=== PATIENT | male | born 1955 | race Caucasian/White ===

== ENCOUNTER 2020-07-03 20:34 | Inpatient (IN) ==
[2020-07-03] MEDS ORDERED: SODIUM CHLORIDE 0.9% 1,000 ML IV STA ×3 (20:45→23:50)
[2020-07-03 21:55] LABS: Basophils # 0.1 10*3/uL (0.0-0.2); Basophils % 0.7 % (0.0-0.8); Immature Granulocytes % 0.6 %; Immature Granulocytes Absolute 0.07 #; Lymphocytes # 1.2 10*3/uL (1.4-4.0); Lymphocytes % 9.6 % (21.2-54.2); Mean Corpuscular HGB Conc 32.5 GM/DL (32-36); Mean Corpuscular Volume 94.4 FL (87-102); Mean Platelet Volume 11.3 FL (9.6-12.0); Monocytes % 8.8 % (1.7-12.7); Neutrophils % 80.3 % (38.7-73.9); Platelet Count 233 T/CUMM (130-400); Red Blood Count 6.65 MC/CUMM (3.8-5.5); Red Cell Distribution Width 13.4 % (9.3-17.3); White Blood Count 12.6 T/CUMM (4-12)
[2020-07-03 21:57] LABS: Hematocrit 62.8 VOL% (42.0-52.0)
[2020-07-03 21:59] LABS: Hemoglobin 20.4 GM/DL (14.0-18.0)
[2020-07-03 22:15] LABS: Bacteria,Urine Occasional /HPF (Few); Bilirubin,Urine Negative (Negative); Blood, Urine Negative (Negative); Glucose,Urine (UA) Negative (Negative); Granular Casts,Urine 15 /LPF (0-1); Hyaline Casts,Urine 84 /LPF (0-3); Ketones,Urine Negative (Negative); Mucus,Urine Occasional /LPF (Occasional); Nitrite,Urine Negative (Negative); Protein,Urine Negative; RBC,Urine 1 /HPF (0-4); Squamous Epithelial Cell,Urine Occasional /HPF (0-10); Urine Appearance CLEAR (Clear); Urine Color Amber (Yellow); Urine Specific Gravity 1.036 (1.001-1.035); WBC,Urine 3 /HPF (0-6)
[2020-07-03] MEDS: HEPARIN DRIP 25,000 UNITS/500 ML PREMIX IV SCH (22:17)
[2020-07-03 22:26] LABS: Barbiturates Screen,Urine Negative (Negative); Benzodiazepines Screen,Urine Negative (Negative); Cannabinoid Screen,Urine Negative (Negative); Opiate Screen,Urine Negative (Negative); Phencyclidine Screen,Urine Negative (Negative)
[2020-07-03 22:27] LABS: Alanine Aminotransferase 42 U/L (16-61); Albumin 3.4 G/DL (3.4-5.0); Alkaline Phosphatase 85 U/L (45-117); Aspartate Amino Transferase 37 U/L (0-37); Blood Urea Nitrogen 137 MG/DL (7-18); Calcium 9.4 MG/DL (8.5-10.1); Carbon Dioxide 27 MMOL/L (21-32); Estimated Glom Filtration Rate 19 ML/MIN; Glucose 143 MG/DL (74-106); Osmolality,Calculated 339.3 MOS/KG (273-304); Potassium 4.8 MMOL/L (3.5-5.1); Sodium 148 MMOL/L (136-145); Total Protein 7.8 G/DL (6.4-8.3)
[2020-07-03] MEDS ORDERED: SODIUM CHLORIDE 0.9% 500 ML IV STA (23:09)
[2020-07-04] MEDS ORDERED: LORazepam 2 MG/1 ML VIAL IV STA (00:38)
[2020-07-04] MEDS ORDERED: LABETALOL 20 MG/4 ML SYRINGE IV STA (03:21)
[2020-07-04 04:29] LABS: INR 1.3; PT Patient Result 13.7 SECS (9.8-11.9)
[2020-07-04 04:47] LABS: Partial Thromboplastin Time 85.5 SECS (23.9-33.8)
[2020-07-04 04:54] LABS: INR 1.2
[2020-07-04] MEDS ORDERED: SODIUM CHLORIDE 0.9% 1,000 ML IV STA (06:30)
[2020-07-04 11:21] LABS: Calcium 7.8 MG/DL (8.5-10.1); Osmolality,Calculated 356.7 MOS/KG (273-304); Potassium 4.2 MMOL/L (3.5-5.1)
[2020-07-04] MEDS ORDERED: LIDOCAINE 1% 20 ML VIAL ONE (11:51)
[2020-07-04] MEDS ORDERED: HEPARIN/NACL 0.9% 2 UNITS/ML 1,000 ML IV ONE (11:51)
[2020-07-04] MEDS ORDERED: MORPHINE 4 MG/1 ML VIAL IV PRN (12:28)
[2020-07-04] MEDS ORDERED: hydrALAZINE 20 MG/1 ML VIAL IV PRN (12:28)
[2020-07-04] MEDS ORDERED: ALBUTEROL 2.5 MG/3 ML NEB RESP TX PRN (12:28)
[2020-07-04] MEDS ORDERED: HYDROmorphone 2 MG/1 ML VIAL ONE (12:29)
[2020-07-04] MEDS ORDERED: MIDAZOLAM 2 MG/2 ML VIAL ONE (12:30)
[2020-07-04] MEDS ORDERED: HEPARIN 5,000 UNIT/1 ML VIAL ONE (13:21)
[2020-07-04] MEDS: SODIUM CHLORIDE 0.45% 1,000 ML IV SCH ×2 (13:55→22:30)
[2020-07-04] MEDS ORDERED: DEXTROSE 50% 25 GM/50 ML VIAL IV PRN ×2 (14:07→14:32)
[2020-07-04] MEDS ORDERED: GLUCAGON 1 MG VIAL IM PRN ×2 (14:07→14:32)
[2020-07-04] MEDS ORDERED: INFLUENZA VIRUS VACCINE 0.5 ML SYRINGE IM ONE (14:37)
[2020-07-04] MEDS: PANTOPRAZOLE 40 MG VIAL IV SCH (15:42)
[2020-07-04] MEDS: DEXAMETHASONE 4 MG/1 ML VIAL IV SCH ×2 (15:42→20:22)
[2020-07-04] MEDS: HEPARIN DRIP 25,000 UNITS/500 ML PREMIX IV SCH ×2 (18:28→22:00)
[2020-07-04] MEDS: INSULIN LISPRO 100 UNIT/ML SUBCUT SCH (19:05)
[2020-07-05] MEDS: INSULIN LISPRO 100 UNIT/ML SUBCUT SCH ×4 (01:00→18:03)
[2020-07-05] MEDS: SODIUM CHLORIDE 0.45% 1,000 ML IV SCH ×2 (03:35→09:24)
[2020-07-05] MEDS: DEXAMETHASONE 4 MG/1 ML VIAL IV SCH ×4 (03:45→21:46)
[2020-07-05 05:32] LABS: Basophils % 0.1 % (0.0-0.8); Hematocrit 45.4 VOL% (42.0-52.0); Hemoglobin 14.6 GM/DL (14.0-18.0); Immature Granulocytes % 0.6 %; Immature Granulocytes Absolute 0.11 #; Lymphocytes # 1.1 10*3/uL (1.4-4.0); Lymphocytes % 6.3 % (21.2-54.2); Mean Corpuscular HGB Conc 32.2 GM/DL (32-36); Mean Corpuscular Volume 96.4 FL (87-102); Mean Platelet Volume 12.1 FL (9.6-12.0); Monocytes % 4.1 % (1.7-12.7); Neutrophils % 88.9 % (38.7-73.9); Platelet Count 193 T/CUMM (130-400); Red Blood Count 4.71 MC/CUMM (3.8-5.5); Red Cell Distribution Width 13.2 % (9.3-17.3)
[2020-07-05 07:04] LABS: Calcium 8.6 MG/DL (8.5-10.1); Osmolality,Calculated 359.3 MOS/KG (273-304); Potassium 5.2 MMOL/L (3.5-5.1); Thyroid Stimulating Hormone 0.88 uIU/ml (0.358-3.74)
[2020-07-05] MEDS: APIXABAN 5 MG TABLET PO SCH ×2 (09:19→21:49)
[2020-07-05] MEDS: SODIUM BICARB INJ 50 MEQ in STERILE WATER INJ 1,000 ML IV SCH (11:11)
[2020-07-05] MEDS: PANTOPRAZOLE 40 MG VIAL IV SCH (12:00)
[2020-07-05] MEDS: ATORVASTATIN 40 MG TABLET PO SCH (21:49)
[2020-07-06] MEDS: INSULIN LISPRO 100 UNIT/ML SUBCUT SCH ×4 (01:57→18:36)
[2020-07-06] MEDS: DEXAMETHASONE 4 MG/1 ML VIAL IV SCH ×2 (03:35→09:58)
[2020-07-06] MEDS: SODIUM BICARB INJ 50 MEQ in STERILE WATER INJ 1,000 ML IV SCH ×3 (05:41→19:30)
[2020-07-06 07:00] LABS: Basophils % 0.1 % (0.0-0.8); Hematocrit 37.6 VOL% (42.0-52.0); Immature Granulocytes % 1.8 %; Immature Granulocytes Absolute 0.24 #; Lymphocytes % 7.2 % (21.2-54.2); Mean Corpuscular Volume 93.5 FL (87-102); Monocytes % 4.9 % (1.7-12.7); NRBC # 0.36 10*3/uL; Platelet Count 185 T/CUMM (130-400); Red Blood Count 4.02 MC/CUMM (3.8-5.5); Red Cell Distribution Width 13.2 % (9.3-17.3); White Blood Count 13.6 T/CUMM (4-12)
[2020-07-06 07:06] LABS: Potassium 4.7 MMOL/L (3.5-5.1)
[2020-07-06 07:10] LABS: Hemoglobin 12.4 GM/DL (14.0-18.0)
[2020-07-06] MEDS: APIXABAN 5 MG TABLET PO SCH ×2 (12:53→22:11)
[2020-07-06] MEDS: PANTOPRAZOLE 40 MG VIAL IV SCH (12:54)
[2020-07-06] MEDS: ATORVASTATIN 40 MG TABLET PO SCH (22:12)
[2020-07-07] MEDS: INSULIN LISPRO 100 UNIT/ML SUBCUT SCH ×5 (01:31→19:33)
[2020-07-07 06:11] LABS: Basophils % 0.3 % (0.0-0.8); Eosinophils % 0.2 % (0.00-10.9); Hematocrit 34.1 VOL% (42.0-52.0); Hemoglobin 11.2 GM/DL (14.0-18.0); Immature Granulocytes % 3.3 %; Immature Granulocytes Absolute 0.44 #; Lymphocytes # 1.3 10*3/uL (1.4-4.0); Lymphocytes % 9.7 % (21.2-54.2); Mean Corpuscular HGB Conc 32.8 GM/DL (32-36); Mean Corpuscular Volume 96.6 FL (87-102); Monocytes % 7.7 % (1.7-12.7); NRBC # 0.42 10*3/uL; Neutrophils % 78.8 % (38.7-73.9); Platelet Count 169 T/CUMM (130-400); Red Blood Count 3.53 MC/CUMM (3.8-5.5); Red Cell Distribution Width 13.5 % (9.3-17.3); White Blood Count 13.3 T/CUMM (4-12)
[2020-07-07 06:27] LABS: Calcium 8.8 MG/DL (8.5-10.1); Osmolality,Calculated 347.3 MOS/KG (273-304); Potassium 4.5 MMOL/L (3.5-5.1)
[2020-07-07] MEDS: SODIUM BICARB INJ 50 MEQ in STERILE WATER INJ 1,000 ML IV SCH (07:11)
[2020-07-07] MEDS: APIXABAN 5 MG TABLET PO SCH ×2 (09:53→21:27)
[2020-07-07] MEDS: PANTOPRAZOLE 40 MG VIAL IV SCH (12:09)
[2020-07-07] MEDS: SODIUM CHLORIDE 0.45% 1,000 ML IV SCH (12:46)
[2020-07-07] MEDS: ATORVASTATIN 40 MG TABLET PO SCH (21:27)
[2020-07-08] MEDS: SODIUM CHLORIDE 0.45% 1,000 ML IV SCH ×2 (00:36→14:30)
[2020-07-08 07:31] LABS: Basophils % 0.3 % (0.0-0.8); Eosinophils # 0.1 10*3/uL (0.0-0.87); Eosinophils % 0.6 % (0.00-10.9); Hematocrit 34.1 VOL% (42.0-52.0); Hemoglobin 10.8 GM/DL (14.0-18.0); Immature Granulocytes % 2.6 %; Lymphocytes # 2.2 10*3/uL (1.4-4.0); Lymphocytes % 19.4 % (21.2-54.2); Mean Corpuscular HGB Conc 31.7 GM/DL (32-36); Mean Corpuscular Volume 99.4 FL (87-102); Monocytes % 8.6 % (1.7-12.7); NRBC # 0.27 10*3/uL; Neutrophils % 68.5 % (38.7-73.9); Platelet Count 167 T/CUMM (130-400); Red Blood Count 3.43 MC/CUMM (3.8-5.5); Red Cell Distribution Width 13.2 % (9.3-17.3); White Blood Count 11.5 T/CUMM (4-12)
[2020-07-08 07:48] LABS: Calcium 8.4 MG/DL (8.5-10.1); Calcium 8.5 MG/DL (8.5-10.1); Osmolality,Calculated 324.6 MOS/KG (273-304); Osmolality,Calculated 325.6 MOS/KG (273-304); Potassium 4.5 MMOL/L (3.5-5.1)
[2020-07-08] MEDS: INSULIN LISPRO 100 UNIT/ML SUBCUT SCH ×3 (08:58→17:03)
[2020-07-08] MEDS: APIXABAN 5 MG TABLET PO SCH ×2 (09:40→21:32)
[2020-07-08] MEDS: PANTOPRAZOLE 40 MG VIAL IV SCH (11:45)
[2020-07-08] MEDS: ATORVASTATIN 40 MG TABLET PO SCH (21:32)
[2020-07-09] MEDS: INSULIN LISPRO 100 UNIT/ML SUBCUT SCH ×4 (01:29→19:45)
[2020-07-09] MEDS: SODIUM CHLORIDE 0.45% 1,000 ML IV SCH ×2 (01:30→06:01)
[2020-07-09 06:11] LABS: Basophils % 0.2 % (0.0-0.8); Eosinophils # 0.3 10*3/uL (0.0-0.87); Eosinophils % 2.5 % (0.00-10.9); Hematocrit 32.5 VOL% (42.0-52.0); Hemoglobin 10.4 GM/DL (14.0-18.0); Immature Granulocytes % 2.5 %; Immature Granulocytes Absolute 0.27 #; Lymphocytes # 1.7 10*3/uL (1.4-4.0); Lymphocytes % 15.9 % (21.2-54.2); Mean Corpuscular Volume 97.6 FL (87-102); Mean Platelet Volume 13.1 FL (9.6-12.0); Monocytes % 8.3 % (1.7-12.7); NRBC # 0.08 10*3/uL; Neutrophils % 70.6 % (38.7-73.9); Platelet Count 148 T/CUMM (130-400); Red Blood Count 3.33 MC/CUMM (3.8-5.5); Red Cell Distribution Width 13.3 % (9.3-17.3)
[2020-07-09 06:37] LABS: Calcium 8.5 MG/DL (8.5-10.1); Osmolality,Calculated 306.4 MOS/KG (273-304); Potassium 4.4 MMOL/L (3.5-5.1)
[2020-07-09 06:50] LABS: Hypochromasia 1+
[2020-07-09 06:51] LABS: Macrocytosis Slight; Platelet Estimate Adequate; Polychromasia Slight
[2020-07-09] MEDS: APIXABAN 5 MG TABLET PO SCH ×2 (09:27→20:42)
[2020-07-09] MEDS: ATORVASTATIN 40 MG TABLET PO SCH (20:42)
[2020-07-10] MEDS: INSULIN LISPRO 100 UNIT/ML SUBCUT SCH ×4 (00:13→18:41)
[2020-07-10] MEDS: SODIUM CHLORIDE 0.45% 1,000 ML IV SCH (02:10)
[2020-07-10 05:51] LABS: Calcium 7.9 MG/DL (8.5-10.1); Osmolality,Calculated 297.8 MOS/KG (273-304); Potassium 4.3 MMOL/L (3.5-5.1)
[2020-07-10] MEDS: APIXABAN 5 MG TABLET PO SCH (08:42)
[2020-07-10] MEDS ORDERED: SKIN HEALING OINT (AQUAPHOR) 50 GM TUBE TOP PRN (14:39)
[2020-07-10 19:22] LABS: PT Patient Result 10.6 SECS (9.8-11.9); Partial Thromboplastin Time 27.3 SECS (23.9-33.8)
[2020-07-10] MEDS: HEPARIN DRIP 25,000 UNITS/500 ML PREMIX IV SCH (20:54)
[2020-07-10] MEDS: ATORVASTATIN 40 MG TABLET PO SCH (21:01)
[2020-07-11] MEDS: INSULIN LISPRO 100 UNIT/ML SUBCUT SCH ×4 (00:53→17:50)
[2020-07-11 07:15] LABS: Osmolality,Calculated 293.1 MOS/KG (273-304); Potassium 4.2 MMOL/L (3.5-5.1)
[2020-07-11] MEDS: HEPARIN DRIP 25,000 UNITS/500 ML PREMIX IV SCH (16:34)
[2020-07-11] MEDS: ATORVASTATIN 40 MG TABLET PO SCH (22:10)
[2020-07-12] MEDS: INSULIN LISPRO 100 UNIT/ML SUBCUT SCH ×5 (00:40→23:36)
[2020-07-12 06:06] LABS: Calcium 8.3 MG/DL (8.5-10.1); Osmolality,Calculated 294.3 MOS/KG (273-304); Potassium 4.2 MMOL/L (3.5-5.1)
[2020-07-12 08:52] LABS: Basophils % 0.1 % (0.0-0.8); Eosinophils # 0.5 10*3/uL (0.0-0.87); Eosinophils % 2.7 % (0.00-10.9); Hematocrit 24.3 VOL% (42.0-52.0); Immature Granulocytes % 3.3 %; Lymphocytes % 16.5 % (21.2-54.2); Mean Corpuscular HGB Conc 31.3 GM/DL (32-36); Mean Corpuscular Volume 98.4 FL (87-102); Mean Platelet Volume 14.5 FL (9.6-12.0); Monocytes % 8.8 % (1.7-12.7); NRBC # 0.06 10*3/uL; Neutrophils % 68.6 % (38.7-73.9); Red Cell Distribution Width 13.7 % (9.3-17.3)
[2020-07-12 08:54] LABS: Red Blood Count 2.47 MC/CUMM (3.8-5.5)
[2020-07-12 08:55] LABS: Hemoglobin 7.6 GM/DL (14.0-18.0); Platelet Count 270 T/CUMM (130-400)
[2020-07-12 09:12] LABS: Band Neutrophils 1 % (0-10); Eosinophils 3 % (0-10); Lymphocytes 21 % (20-55); Nucleated Red Blood Cells 1 (0-5); Platelet Estimate Adequate; Segmented Neutrophils 64 % (50-85); Total Cells Counted 100
[2020-07-12 09:13] LABS: Hypochromasia 2+; Microcytosis 1+
[2020-07-12] MEDS ORDERED: SODIUM CHLORIDE 0.9% 1,000 ML IV PRN (10:57)
[2020-07-12 11:24] LABS: Basophils % 0.1 % (0.0-0.8); Eosinophils # 0.4 10*3/uL (0.0-0.87); Eosinophils % 2.6 % (0.00-10.9); Hematocrit 22.6 VOL% (42.0-52.0); Immature Granulocytes % 4.2 %; Immature Granulocytes Absolute 0.71 #; Lymphocytes # 2.8 10*3/uL (1.4-4.0); Lymphocytes % 16.6 % (21.2-54.2); Mean Corpuscular Volume 98.3 FL (87-102); Mean Platelet Volume 13.2 FL (9.6-12.0); Monocytes % 9.4 % (1.7-12.7); NRBC # 0.09 10*3/uL; Neutrophils % 67.1 % (38.7-73.9); Platelet Count 265 T/CUMM (130-400); White Blood Count 16.9 T/CUMM (4-12)
[2020-07-12 11:55] LABS: Band Neutrophils 1 % (0-10); Eosinophils 3 % (0-10); Hypochromasia 1+; Lymphocytes 19 % (20-55); Microcytosis 1+; Nucleated Red Blood Cells 1 (0-5); Segmented Neutrophils 73 % (50-85); Total Cells Counted 100
[2020-07-12 15:53] LABS: Hematocrit 21.7 VOL% (42.0-52.0); Hemoglobin 6.9 GM/DL (14.0-18.0)
[2020-07-12] MEDS: ATORVASTATIN 40 MG TABLET PO SCH (21:02)
[2020-07-13 04:31] LABS: Basophils % 0.2 % (0.0-0.8); Eosinophils # 0.3 10*3/uL (0.0-0.87); Hematocrit 24.3 VOL% (42.0-52.0); Immature Granulocytes % 4.8 %; Lymphocytes # 2.3 10*3/uL (1.4-4.0); Lymphocytes % 13.7 % (21.2-54.2); Mean Corpuscular HGB Conc 32.9 GM/DL (32-36); Mean Corpuscular Volume 93.5 FL (87-102); Mean Platelet Volume 13.4 FL (9.6-12.0); Monocytes % 8.9 % (1.7-12.7); NRBC # 0.25 10*3/uL; Neutrophils % 70.4 % (38.7-73.9); Platelet Count 290 T/CUMM (130-400); Red Cell Distribution Width 15.5 % (9.3-17.3); White Blood Count 16.7 T/CUMM (4-12)
[2020-07-13 04:54] LABS: Albumin 1.8 G/DL (3.4-5.0); Bilirubin,Total 0.9 MG/DL (0.2-1.0); Calcium 7.9 MG/DL (8.5-10.1); Osmolality,Calculated 296.8 MOS/KG (273-304); Potassium 4.4 MMOL/L (3.5-5.1); Total Protein 5.2 G/DL (6.4-8.3)
[2020-07-13 05:00] LABS: INR 0.9; PT Patient Result 10.2 SECS (9.8-11.9)
[2020-07-13 05:01] LABS: Eosinophils 3 % (0-10); Hypochromasia 1+; Lymphocytes 17 % (20-55); Microcytosis 1+; Segmented Neutrophils 77 % (50-85); Total Cells Counted 100
[2020-07-13 05:03] LABS: Platelet Estimate Normal
[2020-07-13] MEDS: INSULIN LISPRO 100 UNIT/ML SUBCUT SCH ×3 (05:44→17:17)
[2020-07-13 07:56] LABS: Hematocrit 25.4 VOL% (42.0-52.0); Hemoglobin 7.9 GM/DL (14.0-18.0)
[2020-07-13] MEDS ORDERED: ceFAZolin 1,000 MG in SYRINGE 1 EACH IV ONE (08:00)
[2020-07-13] MEDS ORDERED: LIDOCAINE 2% 5 ML VIAL ONE (14:11)
[2020-07-13] MEDS ORDERED: propofoL 200 MG/20 ML VIAL IV ONE (14:11)
[2020-07-13] MEDS: WARFARIN 5 MG TABLET PO SCH (16:07)
[2020-07-13] MEDS: LACTATED RINGERS 1,000 ML IV SCH (16:52)
[2020-07-13] MEDS: ATORVASTATIN 40 MG TABLET PO SCH (20:49)
[2020-07-14] MEDS: INSULIN LISPRO 100 UNIT/ML SUBCUT SCH ×4 (00:15→17:50)
[2020-07-14 05:37] LABS: Basophils % 0.1 % (0.0-0.8); Eosinophils # 0.1 10*3/uL (0.0-0.87); Eosinophils % 0.5 % (0.00-10.9); Hematocrit 24.7 VOL% (42.0-52.0); Hemoglobin 7.9 GM/DL (14.0-18.0); Immature Granulocytes % 1.4 %; Immature Granulocytes Absolute 0.25 #; Lymphocytes # 1.9 10*3/uL (1.4-4.0); Lymphocytes % 10.7 % (21.2-54.2); Mean Corpuscular Volume 97.6 FL (87-102); Mean Platelet Volume 13.2 FL (9.6-12.0); Monocytes % 5.1 % (1.7-12.7); NRBC # 0.14 10*3/uL; Neutrophils % 82.2 % (38.7-73.9); Red Blood Count 2.53 MC/CUMM (3.8-5.5); Red Cell Distribution Width 16.4 % (9.3-17.3); White Blood Count 17.6 T/CUMM (4-12)
[2020-07-14 05:43] LABS: INR 1.1; PT Patient Result 11.4 SECS (9.8-11.9); Platelet Count 384 T/CUMM (130-400)
[2020-07-14 06:13] LABS: Platelet Estimate Normal
[2020-07-14 06:15] LABS: Anisocytosis 2+; Polychromasia Slight
[2020-07-14] MEDS: WARFARIN 5 MG TABLET PO SCH (09:07)
[2020-07-14] MEDS: LACTATED RINGERS 1,000 ML IV SCH (09:24)
[2020-07-14] MEDS: PIPERACILLIN/TAZOBACTAM 3,375 MG in SODIUM CHLORIDE 0.9% 100 ML IV SCH ×2 (13:55→20:06)
[2020-07-14] MEDS: APIXABAN 5 MG TABLET PO SCH ×2 (15:57→20:06)
[2020-07-14] MEDS: ATORVASTATIN 40 MG TABLET PO SCH (20:06)
[2020-07-15] MEDS: INSULIN LISPRO 100 UNIT/ML SUBCUT SCH ×4 (00:06→18:19)
[2020-07-15] MEDS: PIPERACILLIN/TAZOBACTAM 3,375 MG in SODIUM CHLORIDE 0.9% 100 ML IV SCH ×3 (04:30→20:38)
[2020-07-15 07:42] LABS: Basophils % 0.2 % (0.0-0.8); Eosinophils # 0.3 10*3/uL (0.0-0.87); Eosinophils % 2.3 % (0.00-10.9); Hematocrit 23.5 VOL% (42.0-52.0); Hemoglobin 7.6 GM/DL (14.0-18.0); Immature Granulocytes Absolute 0.12 #; Lymphocytes # 1.5 10*3/uL (1.4-4.0); Lymphocytes % 13.1 % (21.2-54.2); Mean Corpuscular HGB Conc 32.3 GM/DL (32-36); Mean Corpuscular Volume 97.1 FL (87-102); Mean Platelet Volume 12.1 FL (9.6-12.0); Monocytes % 5.7 % (1.7-12.7); NRBC # 0.06 10*3/uL; Neutrophils % 77.7 % (38.7-73.9); Platelet Count 382 T/CUMM (130-400); Red Blood Count 2.42 MC/CUMM (3.8-5.5); Red Cell Distribution Width 16.4 % (9.3-17.3); White Blood Count 11.7 T/CUMM (4-12)
[2020-07-15 07:50] LABS: INR 1.9; PT Patient Result 19.4 SECS (9.8-11.9)
[2020-07-15 08:04] LABS: Calcium 8.3 MG/DL (8.5-10.1); Osmolality,Calculated 301.6 MOS/KG (273-304); Potassium 3.7 MMOL/L (3.5-5.1)
[2020-07-15] MEDS: APIXABAN 5 MG TABLET PO SCH ×2 (09:30→20:39)
[2020-07-15] MEDS: LACTATED RINGERS 1,000 ML IV SCH (09:34)
[2020-07-15] MEDS ORDERED: SODIUM CHLORIDE 0.9% 1,000 ML IV PRN (10:41)
[2020-07-15] MEDS: METOPROLOL TARTRATE 25 MG TABLET PO SCH ×2 (12:08→20:39)
[2020-07-15] MEDS: ATORVASTATIN 40 MG TABLET PO SCH (20:39)
[2020-07-16] MEDS: INSULIN LISPRO 100 UNIT/ML SUBCUT SCH ×4 (02:05→18:07)
[2020-07-16] MEDS: PIPERACILLIN/TAZOBACTAM 3,375 MG in SODIUM CHLORIDE 0.9% 100 ML IV SCH ×3 (04:37→21:27)
[2020-07-16 07:00] LABS: Basophils % 0.4 % (0.0-0.8); Eosinophils # 0.3 10*3/uL (0.0-0.87); Eosinophils % 2.9 % (0.00-10.9); Hematocrit 29.4 VOL% (42.0-52.0); Hemoglobin 9.3 GM/DL (14.0-18.0); Immature Granulocytes % 0.7 %; Immature Granulocytes Absolute 0.08 #; Lymphocytes # 1.9 10*3/uL (1.4-4.0); Lymphocytes % 16.8 % (21.2-54.2); Mean Corpuscular HGB Conc 31.6 GM/DL (32-36); Mean Platelet Volume 11.7 FL (9.6-12.0); Monocytes % 5.9 % (1.7-12.7); NRBC # 0.02 10*3/uL; Neutrophils % 73.3 % (38.7-73.9); Platelet Count 430 T/CUMM (130-400); Red Blood Count 2.94 MC/CUMM (3.8-5.5); Red Cell Distribution Width 15.9 % (9.3-17.3); White Blood Count 11.3 T/CUMM (4-12)
[2020-07-16 07:54] LABS: Calcium 8.3 MG/DL (8.5-10.1); Osmolality,Calculated 304.1 MOS/KG (273-304); Potassium 3.6 MMOL/L (3.5-5.1)
[2020-07-16] MEDS: APIXABAN 5 MG TABLET PO SCH ×2 (09:02→21:27)
[2020-07-16] MEDS: METOPROLOL TARTRATE 25 MG TABLET PO SCH ×2 (09:02→21:27)
[2020-07-16] MEDS: ATORVASTATIN 40 MG TABLET PO SCH (21:27)
[2020-07-17] MEDS: INSULIN LISPRO 100 UNIT/ML SUBCUT SCH ×4 (05:26→17:05)
[2020-07-17] MEDS: PIPERACILLIN/TAZOBACTAM 3,375 MG in SODIUM CHLORIDE 0.9% 100 ML IV SCH ×3 (06:17→22:37)
[2020-07-17 07:43] LABS: Basophils # 0.1 10*3/uL (0.0-0.2); Basophils % 0.4 % (0.0-0.8); Eosinophils # 0.4 10*3/uL (0.0-0.87); Eosinophils % 3.4 % (0.00-10.9); Hematocrit 31.3 VOL% (42.0-52.0); Hemoglobin 9.6 GM/DL (14.0-18.0); Immature Granulocytes % 0.6 %; Immature Granulocytes Absolute 0.07 #; Mean Corpuscular HGB Conc 30.7 GM/DL (32-36); Mean Corpuscular Volume 100.3 FL (87-102); Mean Platelet Volume 12.1 FL (9.6-12.0); Monocytes % 4.6 % (1.7-12.7); Platelet Count 462 T/CUMM (130-400); Red Blood Count 3.12 MC/CUMM (3.8-5.5); Red Cell Distribution Width 15.9 % (9.3-17.3); White Blood Count 12.4 T/CUMM (4-12)
[2020-07-17 08:28] LABS: Calcium 8.4 MG/DL (8.5-10.1); Osmolality,Calculated 301.1 MOS/KG (273-304); Potassium 3.8 MMOL/L (3.5-5.1)
[2020-07-17] MEDS: METOPROLOL TARTRATE 25 MG TABLET PO SCH ×2 (10:12→22:37)
[2020-07-17] MEDS: APIXABAN 5 MG TABLET PO SCH ×2 (10:12→22:37)
[2020-07-17] MEDS: ATORVASTATIN 40 MG TABLET PO SCH (22:37)
[2020-07-18] MEDS: INSULIN LISPRO 100 UNIT/ML SUBCUT SCH ×4 (05:38→18:52)
[2020-07-18 05:47] LABS: Basophils # 0.1 10*3/uL (0.0-0.2); Basophils % 0.6 % (0.0-0.8); Eosinophils # 0.4 10*3/uL (0.0-0.87); Eosinophils % 3.9 % (0.00-10.9); Hematocrit 30.7 VOL% (42.0-52.0); Hemoglobin 9.7 GM/DL (14.0-18.0); Immature Granulocytes % 0.5 %; Immature Granulocytes Absolute 0.05 #; Lymphocytes # 1.9 10*3/uL (1.4-4.0); Lymphocytes % 18.2 % (21.2-54.2); Mean Corpuscular HGB Conc 31.6 GM/DL (32-36); Mean Platelet Volume 11.1 FL (9.6-12.0); Monocytes % 4.2 % (1.7-12.7); Neutrophils % 72.6 % (38.7-73.9); Platelet Count 459 T/CUMM (130-400); Red Cell Distribution Width 15.9 % (9.3-17.3); White Blood Count 10.4 T/CUMM (4-12)
[2020-07-18] MEDS: PIPERACILLIN/TAZOBACTAM 3,375 MG in SODIUM CHLORIDE 0.9% 100 ML IV SCH ×3 (05:55→21:02)
[2020-07-18 06:11] LABS: Calcium 8.4 MG/DL (8.5-10.1); Osmolality,Calculated 296.6 MOS/KG (273-304); Potassium 3.9 MMOL/L (3.5-5.1)
[2020-07-18] MEDS: METOPROLOL TARTRATE 25 MG TABLET PO SCH ×2 (10:11→21:02)
[2020-07-18] MEDS: APIXABAN 5 MG TABLET PO SCH ×2 (10:12→21:02)
[2020-07-18] MEDS: ATORVASTATIN 40 MG TABLET PO SCH (21:02)
[2020-07-19] MEDS: INSULIN LISPRO 100 UNIT/ML SUBCUT SCH ×5 (00:07→23:15)
[2020-07-19] MEDS: PIPERACILLIN/TAZOBACTAM 3,375 MG in SODIUM CHLORIDE 0.9% 100 ML IV SCH ×2 (04:14→12:53)
[2020-07-19 04:59] LABS: Basophils # 0.1 10*3/uL (0.0-0.2); Basophils % 0.6 % (0.0-0.8); Eosinophils # 0.3 10*3/uL (0.0-0.87); Eosinophils % 3.1 % (0.00-10.9); Hematocrit 30.9 VOL% (42.0-52.0); Hemoglobin 9.6 GM/DL (14.0-18.0); Immature Granulocytes % 0.4 %; Immature Granulocytes Absolute 0.04 #; Lymphocytes % 19.8 % (21.2-54.2); Mean Corpuscular HGB Conc 31.1 GM/DL (32-36); Mean Corpuscular Volume 99.7 FL (87-102); Monocytes % 4.2 % (1.7-12.7); Neutrophils % 71.9 % (38.7-73.9); Platelet Count 463 T/CUMM (130-400); Red Cell Distribution Width 15.9 % (9.3-17.3); White Blood Count 9.9 T/CUMM (4-12)
[2020-07-19 05:33] LABS: Bilirubin,Total 1.1 MG/DL (0.2-1.0); Osmolality,Calculated 295.4 MOS/KG (273-304); Potassium 4.5 MMOL/L (3.5-5.1); Risk Ratio 4.81; Total Protein 6.1 G/DL (6.4-8.9)
[2020-07-19] MEDS: METOPROLOL TARTRATE 25 MG TABLET PO SCH ×2 (08:34→20:19)
[2020-07-19] MEDS: APIXABAN 5 MG TABLET PO SCH (08:34)
[2020-07-19 16:16] LABS: Hematocrit 25.7 VOL% (42.0-52.0); Hemoglobin 7.8 GM/DL (14.0-18.0)
[2020-07-19] MEDS ORDERED: SODIUM CHLORIDE 0.9% 1,000 ML IV ONE (16:45)
[2020-07-19 18:18] LABS: Hematocrit 24.4 VOL% (42.0-52.0); Hemoglobin 7.2 GM/DL (14.0-18.0)
[2020-07-19] MEDS ORDERED: SODIUM CHLORIDE 0.9% 1,000 ML IV PRN ×2 (18:23→19:31)
[2020-07-19 20:08] LABS: Basophils # 0.1 10*3/uL (0.0-0.2); Basophils % 0.7 % (0.0-0.8); Eosinophils # 0.1 10*3/uL (0.0-0.87); Hemoglobin 7.5 GM/DL (14.0-18.0); Immature Granulocytes % 0.6 %; Immature Granulocytes Absolute 0.08 #; Lymphocytes # 2.9 10*3/uL (1.4-4.0); Lymphocytes % 23.1 % (21.2-54.2); Mean Corpuscular Volume 103.7 FL (87-102); Mean Platelet Volume 11.6 FL (9.6-12.0); Monocytes % 6.2 % (1.7-12.7); NRBC # 0.02 10*3/uL; Neutrophils % 68.4 % (38.7-73.9); Platelet Count 435 T/CUMM (130-400); Red Blood Count 2.41 MC/CUMM (3.8-5.5); White Blood Count 12.6 T/CUMM (4-12)
[2020-07-19] MEDS: ONDANSETRON 4 MG/2 ML VIAL IV PRN (20:19)
[2020-07-19] MEDS: ACETAMINOPHEN 325 MG/10.15 ML UDCUP PO PRN (20:19)
[2020-07-19] MEDS: ATORVASTATIN 40 MG TABLET PO SCH (20:19)
[2020-07-19 22:30] LABS: Hematocrit 23.6 VOL% (42.0-52.0); Hemoglobin 6.9 GM/DL (14.0-18.0)
[2020-07-20] MEDS: INSULIN LISPRO 100 UNIT/ML SUBCUT SCH ×3 (05:01→18:31)
[2020-07-20 07:46] LABS: Basophils # 0.1 10*3/uL (0.0-0.2); Basophils % 0.7 % (0.0-0.8); Eosinophils # 0.2 10*3/uL (0.0-0.87); Eosinophils % 1.4 % (0.00-10.9); Hematocrit 29.7 VOL% (42.0-52.0); Hemoglobin 9.5 GM/DL (14.0-18.0); Immature Granulocytes % 0.8 %; Immature Granulocytes Absolute 0.11 #; Lymphocytes # 2.3 10*3/uL (1.4-4.0); Lymphocytes % 16.4 % (21.2-54.2); Mean Corpuscular Volume 95.5 FL (87-102); Mean Platelet Volume 11.5 FL (9.6-12.0); Monocytes % 5.3 % (1.7-12.7); NRBC # 0.04 10*3/uL; Neutrophils % 75.4 % (38.7-73.9); Platelet Count 389 T/CUMM (130-400); Red Blood Count 3.11 MC/CUMM (3.8-5.5); Red Cell Distribution Width 17.7 % (9.3-17.3); White Blood Count 13.8 T/CUMM (4-12)
[2020-07-20 08:05] LABS: Calcium 8.2 MG/DL (8.5-10.1); Osmolality,Calculated 311.1 MOS/KG (273-304); Potassium 4.2 MMOL/L (3.5-5.1)
[2020-07-20 10:17] LABS: Hematocrit 30.3 VOL% (42.0-52.0); Hemoglobin 9.6 GM/DL (14.0-18.0)
[2020-07-20] MEDS: METOPROLOL TARTRATE 25 MG TABLET PO SCH ×2 (14:14→21:27)
[2020-07-20 16:50] LABS: Hematocrit 29.9 VOL% (42.0-52.0); Hemoglobin 9.3 GM/DL (14.0-18.0)
[2020-07-20] MEDS: ATORVASTATIN 40 MG TABLET PO SCH (21:27)
[2020-07-20 22:44] LABS: Hematocrit 28.8 VOL% (42.0-52.0); Hemoglobin 8.8 GM/DL (14.0-18.0)
[2020-07-21] MEDS: INSULIN LISPRO 100 UNIT/ML SUBCUT SCH ×4 (00:45→17:40)
[2020-07-21 05:58] LABS: Hematocrit 27.8 VOL% (42.0-52.0); Hemoglobin 8.6 GM/DL (14.0-18.0)
[2020-07-21 06:01] LABS: Basophils # 0.1 10*3/uL (0.0-0.2); Basophils % 0.4 % (0.0-0.8); Eosinophils # 0.2 10*3/uL (0.0-0.87); Eosinophils % 1.3 % (0.00-10.9); Hematocrit 27.6 VOL% (42.0-52.0); Hemoglobin 8.8 GM/DL (14.0-18.0); Immature Granulocytes % 0.7 %; Lymphocytes # 1.7 10*3/uL (1.4-4.0); Lymphocytes % 12.4 % (21.2-54.2); Mean Corpuscular HGB Conc 31.9 GM/DL (32-36); Mean Corpuscular Volume 96.5 FL (87-102); Mean Platelet Volume 11.6 FL (9.6-12.0); Monocytes % 5.1 % (1.7-12.7); NRBC # 0.14 10*3/uL; Neutrophils % 80.1 % (38.7-73.9); Platelet Count 383 T/CUMM (130-400); Red Blood Count 2.86 MC/CUMM (3.8-5.5); Red Cell Distribution Width 18.4 % (9.3-17.3); White Blood Count 13.8 T/CUMM (4-12)
[2020-07-21 06:21] LABS: Calcium 8.3 MG/DL (8.5-10.1); Osmolality,Calculated 312.1 MOS/KG (273-304); Potassium 3.5 MMOL/L (3.5-5.1)
[2020-07-21] MEDS: METOPROLOL TARTRATE 25 MG TABLET PO SCH ×2 (09:53→21:17)
[2020-07-21] MEDS: METOCLOPRAMIDE 10 MG/2 ML VIAL IV SCH ×2 (12:02→17:40)
[2020-07-21] MEDS: ATORVASTATIN 40 MG TABLET PO SCH (21:17)
[2020-07-22] MEDS: INSULIN LISPRO 100 UNIT/ML SUBCUT SCH ×4 (00:13→17:15)
[2020-07-22] MEDS: METOCLOPRAMIDE 10 MG/2 ML VIAL IV SCH ×4 (00:59→17:15)
[2020-07-22] MEDS: METOPROLOL TARTRATE 25 MG TABLET PO SCH ×2 (09:19→21:29)
[2020-07-22] MEDS: ALBUTEROL/IPRATROPIUM 3 ML NEB RESP TX SCH (19:25)
[2020-07-22] MEDS: ATORVASTATIN 40 MG TABLET PO SCH (21:29)
[2020-07-23] MEDS: METOCLOPRAMIDE 10 MG/2 ML VIAL IV SCH ×4 (00:20→21:44)
[2020-07-23] MEDS: INSULIN LISPRO 100 UNIT/ML SUBCUT SCH ×4 (01:11→17:52)
[2020-07-23] MEDS: ALBUTEROL/IPRATROPIUM 3 ML NEB RESP TX SCH ×4 (01:45→19:28)
[2020-07-23 06:06] LABS: Basophils % 0.5 % (0.0-0.8); Eosinophils # 0.4 10*3/uL (0.0-0.87); Eosinophils % 4.1 % (0.00-10.9); Hematocrit 27.6 VOL% (42.0-52.0); Hemoglobin 8.4 GM/DL (14.0-18.0); Immature Granulocytes % 0.6 %; Immature Granulocytes Absolute 0.05 #; Lymphocytes # 2.1 10*3/uL (1.4-4.0); Mean Corpuscular HGB Conc 30.4 GM/DL (32-36); Mean Corpuscular Volume 102.2 FL (87-102); Mean Platelet Volume 11.5 FL (9.6-12.0); NRBC # 0.03 10*3/uL; Neutrophils % 61.8 % (38.7-73.9); Platelet Count 333 T/CUMM (130-400); Red Cell Distribution Width 18.8 % (9.3-17.3); White Blood Count 8.5 T/CUMM (4-12)
[2020-07-23 06:22] LABS: Calcium 8.1 MG/DL (8.5-10.1)
[2020-07-23] MEDS: METOPROLOL TARTRATE 25 MG TABLET PO SCH ×2 (08:40→21:44)
[2020-07-23] MEDS: ACETAMINOPHEN 325 MG/10.15 ML UDCUP PO PRN (21:43)
[2020-07-23] MEDS: ATORVASTATIN 40 MG TABLET PO SCH (21:44)
[2020-07-24] MEDS: INSULIN LISPRO 100 UNIT/ML SUBCUT SCH ×4 (00:09→19:43)
[2020-07-24] MEDS: ALBUTEROL/IPRATROPIUM 3 ML NEB RESP TX SCH ×4 (00:33→21:06)
[2020-07-24] MEDS: METOCLOPRAMIDE 10 MG/2 ML VIAL IV SCH ×4 (04:30→21:23)
[2020-07-24 06:16] LABS: Basophils % 0.1 % (0.0-0.8); Eosinophils # 0.4 10*3/uL (0.0-0.87); Eosinophils % 4.9 % (0.00-10.9); Hematocrit 27.8 VOL% (42.0-52.0); Hemoglobin 8.2 GM/DL (14.0-18.0); Immature Granulocytes % 0.7 %; Immature Granulocytes Absolute 0.05 #; Lymphocytes # 1.7 10*3/uL (1.4-4.0); Lymphocytes % 22.4 % (21.2-54.2); Mean Corpuscular HGB Conc 29.5 GM/DL (32-36); Mean Platelet Volume 11.2 FL (9.6-12.0); NRBC # 0.02 10*3/uL; Neutrophils % 62.9 % (38.7-73.9); Platelet Count 369 T/CUMM (130-400); White Blood Count 7.4 T/CUMM (4-12)
[2020-07-24 06:37] LABS: Calcium 8.5 MG/DL (8.5-10.1); Osmolality,Calculated 291.8 MOS/KG (273-304); Potassium 3.9 MMOL/L (3.5-5.1)
[2020-07-24] MEDS: METOPROLOL TARTRATE 25 MG TABLET PO SCH ×2 (09:01→21:23)
[2020-07-24] MEDS: ATORVASTATIN 40 MG TABLET PO SCH (21:24)
[2020-07-25] MEDS: INSULIN LISPRO 100 UNIT/ML SUBCUT SCH ×4 (00:07→17:58)
[2020-07-25] MEDS: ALBUTEROL/IPRATROPIUM 3 ML NEB RESP TX SCH ×4 (01:26→19:59)
[2020-07-25] MEDS: METOCLOPRAMIDE 10 MG/2 ML VIAL IV SCH ×4 (03:51→22:27)
[2020-07-25 04:57] LABS: Basophils % 0.3 % (0.0-0.8); Eosinophils # 0.4 10*3/uL (0.0-0.87); Eosinophils % 4.5 % (0.00-10.9); Hematocrit 28.8 VOL% (42.0-52.0); Hemoglobin 8.6 GM/DL (14.0-18.0); Immature Granulocytes % 0.6 %; Immature Granulocytes Absolute 0.05 #; Lymphocytes # 1.9 10*3/uL (1.4-4.0); Lymphocytes % 21.8 % (21.2-54.2); Mean Corpuscular HGB Conc 29.9 GM/DL (32-36); Mean Corpuscular Volume 100.3 FL (87-102); Mean Platelet Volume 11.5 FL (9.6-12.0); Monocytes % 9.6 % (1.7-12.7); Neutrophils % 63.2 % (38.7-73.9); Platelet Count 358 T/CUMM (130-400); Red Blood Count 2.87 MC/CUMM (3.8-5.5); Red Cell Distribution Width 17.7 % (9.3-17.3); White Blood Count 8.6 T/CUMM (4-12)
[2020-07-25 05:16] LABS: Calcium 8.4 MG/DL (8.5-10.1); Osmolality,Calculated 279.4 MOS/KG (273-304); Potassium 3.9 MMOL/L (3.5-5.1)
[2020-07-25 07:24] LABS: PT Patient Result 10.7 SECS (9.8-11.9)
[2020-07-25] MEDS: METOPROLOL TARTRATE 25 MG TABLET PO SCH ×2 (11:23→22:28)
[2020-07-25] MEDS: ATORVASTATIN 40 MG TABLET PO SCH (22:27)
[2020-07-26] MEDS: INSULIN LISPRO 100 UNIT/ML SUBCUT SCH ×4 (00:03→17:40)
[2020-07-26] MEDS: ALBUTEROL/IPRATROPIUM 3 ML NEB RESP TX SCH ×4 (00:41→19:30)
[2020-07-26] MEDS: METOCLOPRAMIDE 10 MG/2 ML VIAL IV SCH ×4 (03:33→20:30)
[2020-07-26] MEDS: ONDANSETRON 4 MG/2 ML VIAL IV PRN ×2 (04:36→08:19)
[2020-07-26 05:58] LABS: Basophils % 0.2 % (0.0-0.8); Eosinophils # 0.2 10*3/uL (0.0-0.87); Eosinophils % 1.9 % (0.00-10.9); Hematocrit 30.3 VOL% (42.0-52.0); Hemoglobin 9.2 GM/DL (14.0-18.0); Immature Granulocytes % 0.5 %; Immature Granulocytes Absolute 0.04 #; Lymphocytes % 11.6 % (21.2-54.2); Mean Corpuscular HGB Conc 30.4 GM/DL (32-36); Mean Corpuscular Volume 99.7 FL (87-102); Mean Platelet Volume 11.3 FL (9.6-12.0); Monocytes % 4.8 % (1.7-12.7); Platelet Count 424 T/CUMM (130-400); Red Blood Count 3.04 MC/CUMM (3.8-5.5); Red Cell Distribution Width 17.1 % (9.3-17.3); White Blood Count 8.9 T/CUMM (4-12)
[2020-07-26 06:24] LABS: Calcium 8.4 MG/DL (8.5-10.1); Osmolality,Calculated 282.8 MOS/KG (273-304); Potassium 3.7 MMOL/L (3.5-5.1)
[2020-07-26 09:41] LABS: Basophils % 0.2 % (0.0-0.8); Eosinophils % 0.4 % (0.00-10.9); Hematocrit 35.2 VOL% (42.0-52.0); Hemoglobin 10.7 GM/DL (14.0-18.0); Immature Granulocytes % 0.5 %; Immature Granulocytes Absolute 0.05 #; Lymphocytes # 1.3 10*3/uL (1.4-4.0); Lymphocytes % 12.7 % (21.2-54.2); Mean Corpuscular HGB Conc 30.4 GM/DL (32-36); Mean Corpuscular Volume 100.6 FL (87-102); Mean Platelet Volume 11.2 FL (9.6-12.0); Monocytes % 4.8 % (1.7-12.7); Neutrophils % 81.4 % (38.7-73.9); Platelet Count 477 T/CUMM (130-400); White Blood Count 10.5 T/CUMM (4-12)
[2020-07-26] MEDS: METOPROLOL TARTRATE 25 MG TABLET PO SCH ×2 (09:44→20:29)
[2020-07-26 09:58] LABS: Calcium 9.1 MG/DL (8.5-10.1); Osmolality,Calculated 280.7 MOS/KG (273-304); Potassium 4.4 MMOL/L (3.5-5.1)
[2020-07-26] MEDS: SODIUM CHLORIDE 0.9% 1,000 ML IV SCH (10:45)
[2020-07-26 12:00] LABS: Amorphous Crystals,Urine Few /HPF (Few); Bilirubin,Urine Negative (Negative); Blood, Urine Negative (Negative); Glucose,Urine (UA) 50 mg/dL (Negative); Hyaline Casts,Urine 7 /LPF (0-3); Ketones,Urine Negative (Negative); Mucus,Urine Many /LPF (Occasional); Nitrite,Urine Negative (Negative); Protein,Urine 30 MG/DL; RBC,Urine 8 /HPF (0-4); Squamous Epithelial Cell,Urine Occasional /HPF (0-10); Urine Appearance CLOUDY (Clear); Urine Color Amber (Yellow); Urine Specific Gravity 1.026 (1.001-1.035)
[2020-07-26] MEDS: ATORVASTATIN 40 MG TABLET PO SCH (20:29)
[2020-07-27] MEDS: ACETAMINOPHEN 325 MG/10.15 ML UDCUP PO PRN (00:49)
[2020-07-27] MEDS: ALBUTEROL/IPRATROPIUM 3 ML NEB RESP TX SCH ×4 (01:18→19:50)
[2020-07-27] MEDS: METOCLOPRAMIDE 10 MG/2 ML VIAL IV SCH ×4 (04:03→21:20)
[2020-07-27] MEDS: INSULIN LISPRO 100 UNIT/ML SUBCUT SCH ×4 (05:20→18:13)
[2020-07-27] MEDS: SODIUM CHLORIDE 0.9% 1,000 ML IV SCH (05:37)
[2020-07-27 06:01] LABS: Basophils % 0.1 % (0.0-0.8); Hematocrit 28.1 VOL% (42.0-52.0); Immature Granulocytes % 0.7 %; Lymphocytes # 1.3 10*3/uL (1.4-4.0); Lymphocytes % 9.6 % (21.2-54.2); Mean Corpuscular HGB Conc 30.2 GM/DL (32-36); Mean Corpuscular Volume 101.1 FL (87-102); Mean Platelet Volume 11.7 FL (9.6-12.0); Monocytes % 6.3 % (1.7-12.7); Neutrophils % 83.3 % (38.7-73.9); Platelet Count 383 T/CUMM (130-400); White Blood Count 13.4 T/CUMM (4-12)
[2020-07-27 06:09] LABS: Calcium 8.2 MG/DL (8.5-10.1); Osmolality,Calculated 292.3 MOS/KG (273-304); Potassium 3.7 MMOL/L (3.5-5.1)
[2020-07-27 06:10] LABS: Hemoglobin 8.5 GM/DL (14.0-18.0); Red Blood Count 2.78 MC/CUMM (3.8-5.5)
[2020-07-27 07:24] LABS: Band Neutrophils 4 % (0-10); Lymphocytes 8 % (20-55); Metamyelocytes 1 %; Platelet Estimate Normal; Segmented Neutrophils 79 % (50-85); Total Cells Counted 100
[2020-07-27] MEDS: METOPROLOL TARTRATE 25 MG TABLET PO SCH ×2 (09:07→21:22)
[2020-07-27] MEDS: ATORVASTATIN 40 MG TABLET PO SCH (21:22)
[2020-07-28] MEDS: ALBUTEROL/IPRATROPIUM 3 ML NEB RESP TX SCH ×4 (00:09→19:16)
[2020-07-28] MEDS: INSULIN LISPRO 100 UNIT/ML SUBCUT SCH ×5 (00:41→23:08)
[2020-07-28] MEDS: SODIUM CHLORIDE 0.9% 1,000 ML IV SCH (02:41)
[2020-07-28 03:54] LABS: Basophils % 0.2 % (0.0-0.8); Eosinophils % 0.1 % (0.00-10.9); Hematocrit 25.9 VOL% (42.0-52.0); Immature Granulocytes % 0.7 %; Immature Granulocytes Absolute 0.09 #; Lymphocytes # 1.3 10*3/uL (1.4-4.0); Lymphocytes % 10.6 % (21.2-54.2); Mean Corpuscular HGB Conc 30.9 GM/DL (32-36); Mean Platelet Volume 11.2 FL (9.6-12.0); Monocytes % 9.4 % (1.7-12.7); Platelet Count 317 T/CUMM (130-400); Red Blood Count 2.59 MC/CUMM (3.8-5.5); Red Cell Distribution Width 16.6 % (9.3-17.3); White Blood Count 12.1 T/CUMM (4-12)
[2020-07-28] MEDS: ACETAMINOPHEN 325 MG/10.15 ML UDCUP PO PRN ×2 (03:56→20:36)
[2020-07-28] MEDS: METOCLOPRAMIDE 10 MG/2 ML VIAL IV SCH ×4 (04:02→20:49)
[2020-07-28 04:51] LABS: Calcium 8.2 MG/DL (8.5-10.1); Osmolality,Calculated 292.4 MOS/KG (273-304); Potassium 3.2 MMOL/L (3.5-5.1)
[2020-07-28 06:08] LABS: Anisocytosis 1+; Lymphocytes 10 % (20-55); Macrocytosis 1+; Platelet Estimate Increased; Polychromasia Few; Segmented Neutrophils 84 % (50-85); Total Cells Counted 100
[2020-07-28 06:11] LABS: Tear Drop Cells Slight
[2020-07-28] MEDS: METOPROLOL TARTRATE 25 MG TABLET PO SCH ×2 (09:37→20:37)
[2020-07-28] MEDS: VANCOMYCIN INJ 1,250 MG in SODIUM CHLORIDE 0.9% 250 ML IV SCH (11:48)
[2020-07-28] MEDS: POTASSIUM CHLORIDE 20 MEQ/15 ML UDCUP PER TUBE PRN (11:49)
[2020-07-28] MEDS: ATORVASTATIN 40 MG TABLET PO SCH (20:37)
[2020-07-28] MEDS: ONDANSETRON 4 MG/2 ML VIAL IV PRN (20:48)
[2020-07-29] MEDS: VANCOMYCIN INJ 1,250 MG in SODIUM CHLORIDE 0.9% 250 ML IV SCH ×3 (00:05→22:00)
[2020-07-29] MEDS: ALBUTEROL/IPRATROPIUM 3 ML NEB RESP TX SCH ×4 (00:17→19:57)
[2020-07-29] MEDS: METOCLOPRAMIDE 10 MG/2 ML VIAL IV SCH ×4 (03:36→20:33)
[2020-07-29] MEDS: INSULIN LISPRO 100 UNIT/ML SUBCUT SCH ×4 (05:18→21:54)
[2020-07-29 05:25] LABS: Basophils % 0.2 % (0.0-0.8); Eosinophils % 0.4 % (0.00-10.9); Hematocrit 27.1 VOL% (42.0-52.0); Immature Granulocytes % 0.8 %; Immature Granulocytes Absolute 0.09 #; Lymphocytes # 1.1 10*3/uL (1.4-4.0); Mean Corpuscular HGB Conc 29.5 GM/DL (32-36); Mean Corpuscular Volume 100.4 FL (87-102); Mean Platelet Volume 11.6 FL (9.6-12.0); Monocytes % 8.6 % (1.7-12.7); Platelet Count 396 T/CUMM (130-400); Red Cell Distribution Width 16.7 % (9.3-17.3); White Blood Count 11.1 T/CUMM (4-12)
[2020-07-29 05:39] LABS: Calcium 8.4 MG/DL (8.5-10.1); Osmolality,Calculated 289.4 MOS/KG (273-304)
[2020-07-29 07:09] LABS: Anisocytosis Slight; Band Neutrophils 19 % (0-10); Lymphocytes 8 % (20-55); Platelet Estimate Normal; Segmented Neutrophils 67 % (50-85); Total Cells Counted 100
[2020-07-29 07:10] LABS: Macrocytosis 1+
[2020-07-29] MEDS: METOPROLOL TARTRATE 25 MG TABLET PO SCH ×2 (09:37→20:14)
[2020-07-29] MEDS: MEROPENEM 500 MG in SODIUM CHLORIDE 0.9% 100 ML IV SCH ×3 (09:40→20:14)
[2020-07-29] MEDS: ACETAMINOPHEN 325 MG/10.15 ML UDCUP PO PRN ×2 (09:43→20:14)
[2020-07-29] MEDS: ONDANSETRON 4 MG/2 ML VIAL IV PRN ×3 (09:51→20:33)
[2020-07-29] MEDS: ATORVASTATIN 40 MG TABLET PO SCH (20:14)
[2020-07-29] MEDS ORDERED: KETOROLAC 30 MG/1 ML VIAL IV ONE (20:36)
[2020-07-29 21:03] LABS: Allen Test Positive
[2020-07-29 21:13] LABS: ABG HCO3 25.3 MMOL/L (20-26); ABG Oxygen Saturation 95.1 % (95-100); ABG PCO2 32.1 MM HG (35-48); ABG PH 7.484 (7.35-7.45); ABG PO2 72.3 MM HG (80-95); ABG TCO2 22.4 MMOL/L (23-27)
[2020-07-30] MEDS: ALBUTEROL/IPRATROPIUM 3 ML NEB RESP TX SCH ×4 (01:09→19:32)
[2020-07-30] MEDS: MEROPENEM 500 MG in SODIUM CHLORIDE 0.9% 100 ML IV SCH ×4 (02:16→22:06)
[2020-07-30] MEDS: ACETAMINOPHEN 325 MG/10.15 ML UDCUP PO PRN (02:16)
[2020-07-30] MEDS: METOCLOPRAMIDE 10 MG/2 ML VIAL IV SCH ×4 (02:17→22:05)
[2020-07-30 04:06] LABS: Basophils % 0.2 % (0.0-0.8); Eosinophils # 0.1 10*3/uL (0.0-0.87); Eosinophils % 1.1 % (0.00-10.9); Hematocrit 25.2 VOL% (42.0-52.0); Hemoglobin 7.6 GM/DL (14.0-18.0); Immature Granulocytes % 0.8 %; Immature Granulocytes Absolute 0.09 #; Lymphocytes # 1.3 10*3/uL (1.4-4.0); Lymphocytes % 11.3 % (21.2-54.2); Mean Corpuscular HGB Conc 30.2 GM/DL (32-36); Mean Corpuscular Volume 98.4 FL (87-102); Mean Platelet Volume 11.5 FL (9.6-12.0); Monocytes % 8.8 % (1.7-12.7); Neutrophils % 77.8 % (38.7-73.9); Platelet Count 398 T/CUMM (130-400); Red Blood Count 2.56 MC/CUMM (3.8-5.5); Red Cell Distribution Width 16.9 % (9.3-17.3); White Blood Count 11.5 T/CUMM (4-12)
[2020-07-30 04:42] LABS: Calcium 8.2 MG/DL (8.5-10.1); Osmolality,Calculated 286.5 MOS/KG (273-304); Potassium 3.8 MMOL/L (3.5-5.1)
[2020-07-30] MEDS: INSULIN LISPRO 100 UNIT/ML SUBCUT SCH ×3 (06:47→19:00)
[2020-07-30] MEDS: METOPROLOL TARTRATE 25 MG TABLET PO SCH ×2 (08:57→22:06)
[2020-07-30] MEDS ORDERED: ACETAMINOPHEN 650 MG SUPP RECTAL ONE (11:41)
[2020-07-30 11:46] LABS: ABG Base Excess -1.4 MMOL/L (-2.5-2.5); ABG HCO3 23.2 MMOL/L (20-26); ABG Oxygen Saturation 96.9 % (95-100); ABG PH 7.286 (7.35-7.45)
[2020-07-30] MEDS: MORPHINE 4 MG/1 ML VIAL IV PRN ×2 (11:49→22:03)
[2020-07-30 12:43] LABS: Troponin I < 0.015 NG/ML (0.00-0.045)
[2020-07-30] MEDS: VANCOMYCIN INJ 1,250 MG in SODIUM CHLORIDE 0.9% 250 ML IV SCH ×2 (13:00→23:53)
[2020-07-30 13:59] LABS: Amorphous Crystals,Urine Occasional /HPF (Few); Bilirubin,Urine Negative (Negative); Blood, Urine Negative (Negative); Glucose,Urine (UA) Negative (Negative); Hyaline Casts,Urine 12 /LPF (0-3); Ketones,Urine Negative (Negative); Mucus,Urine Occasional /LPF (Occasional); Nitrite,Urine Negative (Negative); Protein,Urine 30 MG/DL; RBC,Urine 4 /HPF (0-4); Squamous Epithelial Cell,Urine Occasional /HPF (0-10); Urine Appearance CLOUDY (Clear); Urine Color Amber (Yellow); Urine Specific Gravity 1.044 (1.001-1.035); WBC,Urine 13 /HPF (0-6)
[2020-07-30] MEDS: ATORVASTATIN 40 MG TABLET PO SCH (22:06)
[2020-07-31] MEDS: INSULIN LISPRO 100 UNIT/ML SUBCUT SCH ×4 (00:20→18:02)
[2020-07-31] MEDS: ALBUTEROL/IPRATROPIUM 3 ML NEB RESP TX SCH ×4 (00:21→19:40)
[2020-07-31] MEDS: METOCLOPRAMIDE 10 MG/2 ML VIAL IV SCH ×4 (03:52→20:58)
[2020-07-31] MEDS: MEROPENEM 500 MG in SODIUM CHLORIDE 0.9% 100 ML IV SCH ×4 (03:53→20:31)
[2020-07-31 06:28] LABS: Basophils % 0.2 % (0.0-0.8); Eosinophils # 0.2 10*3/uL (0.0-0.87); Eosinophils % 1.2 % (0.00-10.9); Hematocrit 28.2 VOL% (42.0-52.0); Hemoglobin 8.3 GM/DL (14.0-18.0); Immature Granulocytes % 1.8 %; Immature Granulocytes Absolute 0.28 #; Lymphocytes # 1.8 10*3/uL (1.4-4.0); Lymphocytes % 11.5 % (21.2-54.2); Mean Corpuscular HGB Conc 29.4 GM/DL (32-36); Mean Platelet Volume 11.7 FL (9.6-12.0); Monocytes % 9.9 % (1.7-12.7); Neutrophils % 75.4 % (38.7-73.9); Platelet Count 542 T/CUMM (130-400); Red Blood Count 2.82 MC/CUMM (3.8-5.5); Red Cell Distribution Width 16.9 % (9.3-17.3); White Blood Count 15.6 T/CUMM (4-12)
[2020-07-31 06:49] LABS: Calcium 8.6 MG/DL (8.5-10.1); Osmolality,Calculated 290.1 MOS/KG (273-304); Potassium 4.4 MMOL/L (3.5-5.1)
[2020-07-31 07:01] LABS: Eosinophils 3 % (0-10); Hypochromasia 1+; Lymphocytes 11 % (20-55); Metamyelocytes 1 %; Segmented Neutrophils 78 % (50-85); Total Cells Counted 100
[2020-07-31 07:02] LABS: Macrocytosis 1+; Platelet Estimate Increased; Polychromasia Slight
[2020-07-31 11:15] LABS: Lymphocytes,Pleural Fluid 9 %; Monocytes,Pleural Fluid 3 %; Neutrophils,Pleural Fluid 88 %
[2020-07-31 11:24] LABS: RBC,Pleural Fluid 16896 T/CUMM
[2020-07-31 11:48] LABS: Glucose,Pleural Fluid 97 MG/DL; LDH,Pleural Fluid 1913 U/L; Total Protein,Pleural Fluid 3.3 G/DL
[2020-07-31] MEDS: VANCOMYCIN INJ 1,250 MG in SODIUM CHLORIDE 0.9% 250 ML IV SCH ×2 (12:06→23:11)
[2020-07-31] MEDS: METOPROLOL TARTRATE 25 MG TABLET PO SCH ×2 (12:08→20:30)
[2020-07-31] MEDS: ATORVASTATIN 40 MG TABLET PO SCH (20:30)
[2020-08-01] MEDS: INSULIN LISPRO 100 UNIT/ML SUBCUT SCH ×5 (00:25→23:35)
[2020-08-01] MEDS: ALBUTEROL/IPRATROPIUM 3 ML NEB RESP TX SCH ×4 (01:31→20:32)
[2020-08-01] MEDS: MEROPENEM 500 MG in SODIUM CHLORIDE 0.9% 100 ML IV SCH ×4 (03:38→21:33)
[2020-08-01] MEDS: METOCLOPRAMIDE 10 MG/2 ML VIAL IV SCH ×4 (03:41→21:32)
[2020-08-01 08:30] LABS: Basophils % 0.3 % (0.0-0.8); Eosinophils # 0.3 10*3/uL (0.0-0.87); Eosinophils % 2.8 % (0.00-10.9); Hematocrit 25.3 VOL% (42.0-52.0); Hemoglobin 7.4 GM/DL (14.0-18.0); Immature Granulocytes % 2.4 %; Immature Granulocytes Absolute 0.26 #; Lymphocytes # 1.7 10*3/uL (1.4-4.0); Lymphocytes % 15.2 % (21.2-54.2); Mean Corpuscular HGB Conc 29.2 GM/DL (32-36); Mean Platelet Volume 11.9 FL (9.6-12.0); Monocytes % 10.5 % (1.7-12.7); NRBC # 0.04 10*3/uL; Neutrophils % 68.8 % (38.7-73.9); Platelet Count 480 T/CUMM (130-400); Red Blood Count 2.48 MC/CUMM (3.8-5.5); Red Cell Distribution Width 16.8 % (9.3-17.3); White Blood Count 10.9 T/CUMM (4-12)
[2020-08-01] MEDS: METOPROLOL TARTRATE 25 MG TABLET PO SCH ×2 (09:09→21:32)
[2020-08-01] MEDS: VANCOMYCIN INJ 1,250 MG in SODIUM CHLORIDE 0.9% 250 ML IV SCH ×2 (11:07→22:39)
[2020-08-01] MEDS: ACETAMINOPHEN 325 MG/10.15 ML UDCUP PO PRN (21:32)
[2020-08-01] MEDS: ATORVASTATIN 40 MG TABLET PO SCH (21:32)
[2020-08-02] MEDS: VANCOMYCIN INJ 1,250 MG in SODIUM CHLORIDE 0.9% 250 ML IV SCH ×3 (00:06→23:48)
[2020-08-02] MEDS: ALBUTEROL/IPRATROPIUM 3 ML NEB RESP TX SCH ×4 (02:38→19:37)
[2020-08-02 04:25] LABS: Basophils # 0.1 10*3/uL (0.0-0.2); Basophils % 0.5 % (0.0-0.8); Eosinophils # 0.3 10*3/uL (0.0-0.87); Eosinophils % 2.4 % (0.00-10.9); Hematocrit 26.6 VOL% (42.0-52.0); Hemoglobin 7.9 GM/DL (14.0-18.0); Immature Granulocytes % 6.7 %; Immature Granulocytes Absolute 0.69 #; Lymphocytes # 1.9 10*3/uL (1.4-4.0); Lymphocytes % 18.2 % (21.2-54.2); Mean Corpuscular HGB Conc 29.7 GM/DL (32-36); Mean Corpuscular Volume 98.2 FL (87-102); Mean Platelet Volume 11.5 FL (9.6-12.0); Monocytes % 9.5 % (1.7-12.7); NRBC # 0.05 10*3/uL; Neutrophils % 62.7 % (38.7-73.9); Platelet Count 515 T/CUMM (130-400); Red Blood Count 2.71 MC/CUMM (3.8-5.5); Red Cell Distribution Width 16.8 % (9.3-17.3); White Blood Count 10.4 T/CUMM (4-12)
[2020-08-02] MEDS: MEROPENEM 500 MG in SODIUM CHLORIDE 0.9% 100 ML IV SCH ×4 (04:38→21:37)
[2020-08-02] MEDS: ACETAMINOPHEN 325 MG/10.15 ML UDCUP PO PRN ×2 (04:39→21:36)
[2020-08-02] MEDS: METOCLOPRAMIDE 10 MG/2 ML VIAL IV SCH ×4 (04:39→21:37)
[2020-08-02 04:46] LABS: Eosinophils 2 % (0-10); Lymphocytes 27 % (20-55); Nucleated Red Blood Cells 1 (0-5); Platelet Estimate Adequate; Segmented Neutrophils 57 % (50-85); Total Cells Counted 100
[2020-08-02 04:47] LABS: Hypochromasia 1+; Microcytosis 1+
[2020-08-02 04:54] LABS: Calcium 8.6 MG/DL (8.5-10.1); Osmolality,Calculated 289.1 MOS/KG (273-304); Potassium 3.7 MMOL/L (3.5-5.1)
[2020-08-02] MEDS: INSULIN LISPRO 100 UNIT/ML SUBCUT SCH ×4 (05:55→23:48)
[2020-08-02] MEDS: METOPROLOL TARTRATE 25 MG TABLET PO SCH ×2 (08:19→21:37)
[2020-08-02] MEDS: ATORVASTATIN 40 MG TABLET PO SCH (21:37)
[2020-08-03] MEDS: ALBUTEROL/IPRATROPIUM 3 ML NEB RESP TX SCH ×4 (00:10→20:14)
[2020-08-03] MEDS: ACETAMINOPHEN 325 MG/10.15 ML UDCUP PO PRN ×2 (04:47→21:49)
[2020-08-03] MEDS: MEROPENEM 500 MG in SODIUM CHLORIDE 0.9% 100 ML IV SCH ×4 (04:48→21:50)
[2020-08-03] MEDS: METOCLOPRAMIDE 10 MG/2 ML VIAL IV SCH ×4 (04:48→21:49)
[2020-08-03] MEDS: INSULIN LISPRO 100 UNIT/ML SUBCUT SCH ×3 (06:00→17:48)
[2020-08-03 06:38] LABS: Basophils # 0.1 10*3/uL (0.0-0.2); Basophils % 0.4 % (0.0-0.8); Eosinophils # 0.1 10*3/uL (0.0-0.87); Eosinophils % 0.9 % (0.00-10.9); Hematocrit 27.6 VOL% (42.0-52.0); Hemoglobin 8.3 GM/DL (14.0-18.0); Immature Granulocytes % 5.5 %; Immature Granulocytes Absolute 0.87 #; Lymphocytes # 1.7 10*3/uL (1.4-4.0); Lymphocytes % 10.9 % (21.2-54.2); Mean Corpuscular HGB Conc 30.1 GM/DL (32-36); Mean Corpuscular Volume 97.5 FL (87-102); Mean Platelet Volume 11.3 FL (9.6-12.0); Monocytes % 6.5 % (1.7-12.7); NRBC # 0.03 10*3/uL; Neutrophils % 75.8 % (38.7-73.9); Platelet Count 591 T/CUMM (130-400); Red Blood Count 2.83 MC/CUMM (3.8-5.5); Red Cell Distribution Width 16.4 % (9.3-17.3); White Blood Count 15.9 T/CUMM (4-12)
[2020-08-03 06:53] LABS: Calcium 8.2 MG/DL (8.5-10.1); Osmolality,Calculated 285.5 MOS/KG (273-304); Potassium 4.2 MMOL/L (3.5-5.1)
[2020-08-03 07:15] LABS: Eosinophils 2 % (0-10); Hypochromasia 1+; Lymphocytes 5 % (20-55); Microcytosis 1+; Myelocytes 1 %; Ovalocytes Slight; Segmented Neutrophils 88 % (50-85); Total Cells Counted 100
[2020-08-03] MEDS: METOPROLOL TARTRATE 25 MG TABLET PO SCH ×2 (08:09→21:49)
[2020-08-03] MEDS: ESCITALOPRAM 10 MG TABLET PER TUBE SCH (21:49)
[2020-08-03] MEDS: ATORVASTATIN 40 MG TABLET PO SCH (21:49)
[2020-08-04] MEDS: INSULIN LISPRO 100 UNIT/ML SUBCUT SCH ×5 (00:12→23:53)
[2020-08-04] MEDS: ALBUTEROL/IPRATROPIUM 3 ML NEB RESP TX SCH ×4 (01:40→20:06)
[2020-08-04] MEDS: METOCLOPRAMIDE 10 MG/2 ML VIAL IV SCH ×4 (03:20→21:00)
[2020-08-04] MEDS: MEROPENEM 500 MG in SODIUM CHLORIDE 0.9% 100 ML IV SCH ×4 (03:24→21:01)
[2020-08-04] MEDS: METOPROLOL TARTRATE 25 MG TABLET PO SCH ×2 (09:03→21:00)
[2020-08-04] MEDS: ESCITALOPRAM 10 MG TABLET PER TUBE SCH (21:00)
[2020-08-04] MEDS: ATORVASTATIN 40 MG TABLET PO SCH (21:00)
[2020-08-05] MEDS: ALBUTEROL/IPRATROPIUM 3 ML NEB RESP TX SCH ×4 (01:27→22:17)
[2020-08-05] MEDS: MEROPENEM 500 MG in SODIUM CHLORIDE 0.9% 100 ML IV SCH ×4 (02:45→20:55)
[2020-08-05] MEDS: METOCLOPRAMIDE 10 MG/2 ML VIAL IV SCH ×4 (02:45→21:28)
[2020-08-05] MEDS: INSULIN LISPRO 100 UNIT/ML SUBCUT SCH ×4 (05:50→23:52)
[2020-08-05] MEDS: METOPROLOL TARTRATE 25 MG TABLET PO SCH ×2 (09:05→21:30)
[2020-08-05] MEDS: ACETAMINOPHEN 325 MG/10.15 ML UDCUP PO PRN (16:28)
[2020-08-05] MEDS: ONDANSETRON 4 MG/2 ML VIAL IV PRN (20:00)
[2020-08-05] MEDS: ATORVASTATIN 40 MG TABLET PO SCH (21:30)
[2020-08-05] MEDS: ESCITALOPRAM 10 MG TABLET PER TUBE SCH (21:30)
[2020-08-06] MEDS: ALBUTEROL/IPRATROPIUM 3 ML NEB RESP TX SCH ×4 (01:49→19:18)
[2020-08-06 02:51] LABS: Calcium 8.4 MG/DL (8.5-10.1); Osmolality,Calculated 283.7 MOS/KG (273-304); Potassium 3.5 MMOL/L (3.5-5.1)
[2020-08-06] MEDS: METOCLOPRAMIDE 10 MG/2 ML VIAL IV SCH ×4 (03:56→21:20)
[2020-08-06] MEDS: INSULIN LISPRO 100 UNIT/ML SUBCUT SCH ×3 (06:08→17:11)
[2020-08-06] MEDS: METOPROLOL TARTRATE 25 MG TABLET PO SCH ×2 (09:06→21:42)
[2020-08-06] MEDS: ONDANSETRON 4 MG/2 ML VIAL IV PRN ×2 (09:06→15:06)
[2020-08-06] MEDS: ATORVASTATIN 40 MG TABLET PO SCH (21:42)
[2020-08-06] MEDS: ESCITALOPRAM 10 MG TABLET PER TUBE SCH (21:42)
[2020-08-07] MEDS: ALBUTEROL/IPRATROPIUM 3 ML NEB RESP TX SCH ×4 (00:16→19:23)
[2020-08-07] MEDS: INSULIN LISPRO 100 UNIT/ML SUBCUT SCH ×4 (03:30→17:16)
[2020-08-07] MEDS: METOCLOPRAMIDE 10 MG/2 ML VIAL IV SCH ×4 (03:37→20:41)
[2020-08-07] MEDS: METOPROLOL TARTRATE 25 MG TABLET PO SCH ×2 (08:21→21:19)
[2020-08-07] MEDS: ATORVASTATIN 40 MG TABLET PO SCH (21:19)
[2020-08-07] MEDS: ESCITALOPRAM 10 MG TABLET PER TUBE SCH (21:19)
[2020-08-08] MEDS: ALBUTEROL/IPRATROPIUM 3 ML NEB RESP TX SCH ×4 (00:12→20:10)
[2020-08-08] MEDS: INSULIN LISPRO 100 UNIT/ML SUBCUT SCH ×4 (02:49→19:30)
[2020-08-08] MEDS: METOCLOPRAMIDE 10 MG/2 ML VIAL IV SCH ×4 (04:57→21:07)
[2020-08-08] MEDS: METOPROLOL TARTRATE 25 MG TABLET PO SCH ×2 (09:25→21:08)
[2020-08-08] MEDS: FUROSEMIDE 20 MG/2 ML VIAL IV SCH (16:31)
[2020-08-08] MEDS: ATORVASTATIN 40 MG TABLET PO SCH (21:08)
[2020-08-08] MEDS: ESCITALOPRAM 10 MG TABLET PER TUBE SCH (21:08)
[2020-08-09] MEDS: ALBUTEROL/IPRATROPIUM 3 ML NEB RESP TX SCH ×4 (01:37→20:23)
[2020-08-09] MEDS: METOCLOPRAMIDE 10 MG/2 ML VIAL IV SCH ×4 (05:07→21:49)
[2020-08-09] MEDS: INSULIN LISPRO 100 UNIT/ML SUBCUT SCH ×4 (05:07→18:27)
[2020-08-09] MEDS: FUROSEMIDE 20 MG/2 ML VIAL IV SCH ×2 (09:50→16:43)
[2020-08-09] MEDS: METOPROLOL TARTRATE 25 MG TABLET PO SCH ×2 (09:51→21:52)
[2020-08-09] MEDS: ATORVASTATIN 40 MG TABLET PO SCH (21:50)
[2020-08-09] MEDS: ESCITALOPRAM 10 MG TABLET PER TUBE SCH (21:50)
[2020-08-10] MEDS: ALBUTEROL/IPRATROPIUM 3 ML NEB RESP TX SCH ×4 (01:14→19:32)
[2020-08-10] MEDS: INSULIN LISPRO 100 UNIT/ML SUBCUT SCH ×5 (04:26→23:35)
[2020-08-10] MEDS: METOCLOPRAMIDE 10 MG/2 ML VIAL IV SCH ×4 (04:27→20:43)
[2020-08-10] MEDS: METOPROLOL TARTRATE 25 MG TABLET PO SCH ×2 (09:17→20:42)
[2020-08-10] MEDS: FUROSEMIDE 20 MG/2 ML VIAL IV SCH ×2 (09:17→15:00)
[2020-08-10 13:05] LABS: Basophils % 0.3 % (0.0-0.8); Eosinophils # 0.1 10*3/uL (0.0-0.87); Eosinophils % 0.7 % (0.00-10.9); Hematocrit 27.4 VOL% (42.0-52.0); Immature Granulocytes % 0.7 %; Lymphocytes # 1.3 10*3/uL (1.4-4.0); Lymphocytes % 9.3 % (21.2-54.2); Mean Corpuscular HGB Conc 29.2 GM/DL (32-36); Mean Corpuscular Volume 98.9 FL (87-102); Mean Platelet Volume 9.9 FL (9.6-12.0); Monocytes % 6.7 % (1.7-12.7); Neutrophils % 82.3 % (38.7-73.9); Platelet Count 722 T/CUMM (130-400); Red Blood Count 2.77 MC/CUMM (3.8-5.5); White Blood Count 14.1 T/CUMM (4-12)
[2020-08-10 13:20] LABS: Calcium 8.3 MG/DL (8.5-10.1); Osmolality,Calculated 284.3 MOS/KG (273-304); Potassium 3.7 MMOL/L (3.5-5.1)
[2020-08-10] MEDS: ESCITALOPRAM 10 MG TABLET PER TUBE SCH (20:42)
[2020-08-10] MEDS: ACETAMINOPHEN 325 MG/10.15 ML UDCUP PO PRN (20:42)
[2020-08-10] MEDS: ATORVASTATIN 40 MG TABLET PO SCH (20:42)
[2020-08-11] MEDS: ALBUTEROL/IPRATROPIUM 3 ML NEB RESP TX SCH ×4 (00:27→19:17)
[2020-08-11] MEDS: METOCLOPRAMIDE 10 MG/2 ML VIAL IV SCH ×4 (04:17→21:23)
[2020-08-11 05:28] LABS: Basophils % 0.4 % (0.0-0.8); Eosinophils # 0.2 10*3/uL (0.0-0.87); Eosinophils % 2.6 % (0.00-10.9); Hematocrit 25.4 VOL% (42.0-52.0); Hemoglobin 7.6 GM/DL (14.0-18.0); Immature Granulocytes % 0.8 %; Immature Granulocytes Absolute 0.07 #; Lymphocytes # 1.5 10*3/uL (1.4-4.0); Lymphocytes % 16.4 % (21.2-54.2); Mean Corpuscular HGB Conc 29.9 GM/DL (32-36); Mean Corpuscular Volume 97.3 FL (87-102); Monocytes % 6.9 % (1.7-12.7); Neutrophils % 72.9 % (38.7-73.9); Platelet Count 616 T/CUMM (130-400); Red Blood Count 2.61 MC/CUMM (3.8-5.5); Red Cell Distribution Width 16.1 % (9.3-17.3)
[2020-08-11] MEDS: INSULIN LISPRO 100 UNIT/ML SUBCUT SCH ×4 (05:39→23:55)
[2020-08-11 05:41] LABS: Calcium 8.4 MG/DL (8.5-10.1); Osmolality,Calculated 279.5 MOS/KG (273-304); Potassium 3.8 MMOL/L (3.5-5.1)
[2020-08-11] MEDS: METOPROLOL TARTRATE 25 MG TABLET PO SCH ×2 (08:05→21:23)
[2020-08-11] MEDS: FUROSEMIDE 20 MG/2 ML VIAL IV SCH ×2 (08:07→15:05)
[2020-08-11] MEDS: ATORVASTATIN 40 MG TABLET PO SCH (21:23)
[2020-08-11] MEDS: ACETAMINOPHEN 325 MG/10.15 ML UDCUP PO PRN (21:23)
[2020-08-11] MEDS: ESCITALOPRAM 10 MG TABLET PER TUBE SCH (21:23)
[2020-08-12] MEDS: ALBUTEROL/IPRATROPIUM 3 ML NEB RESP TX SCH ×4 (00:08→19:32)
[2020-08-12] MEDS: METOCLOPRAMIDE 10 MG/2 ML VIAL IV SCH ×4 (03:26→21:18)
[2020-08-12] MEDS: INSULIN LISPRO 100 UNIT/ML SUBCUT SCH ×4 (05:14→23:32)
[2020-08-12] MEDS: METOPROLOL TARTRATE 25 MG TABLET PO SCH ×2 (08:43→21:18)
[2020-08-12] MEDS: FUROSEMIDE 20 MG/2 ML VIAL IV SCH (08:45)
[2020-08-12 09:06] LABS: Basophils # 0.1 10*3/uL (0.0-0.2); Basophils % 0.6 % (0.0-0.8); Eosinophils # 0.3 10*3/uL (0.0-0.87); Eosinophils % 3.1 % (0.00-10.9); Hematocrit 27.2 VOL% (42.0-52.0); Hemoglobin 8.2 GM/DL (14.0-18.0); Immature Granulocytes % 0.7 %; Immature Granulocytes Absolute 0.07 #; Lymphocytes # 1.5 10*3/uL (1.4-4.0); Lymphocytes % 14.8 % (21.2-54.2); Mean Corpuscular HGB Conc 30.1 GM/DL (32-36); Mean Corpuscular Volume 96.8 FL (87-102); Mean Platelet Volume 9.9 FL (9.6-12.0); Monocytes % 7.5 % (1.7-12.7); Neutrophils % 73.3 % (38.7-73.9); Platelet Count 661 T/CUMM (130-400); Red Blood Count 2.81 MC/CUMM (3.8-5.5); White Blood Count 10.1 T/CUMM (4-12)
[2020-08-12 09:26] LABS: Calcium 8.6 MG/DL (8.5-10.1); Osmolality,Calculated 275.8 MOS/KG (273-304); Potassium 4.1 MMOL/L (3.5-5.1)
[2020-08-12] MEDS ORDERED: MAGNESIUM SULF RIDER 2 GM in PREMIX 1 EACH IV ONE (14:31)
[2020-08-12] MEDS: FUROSEMIDE 20 MG TABLET PO SCH (15:32)
[2020-08-12] MEDS: ESCITALOPRAM 10 MG TABLET PER TUBE SCH (21:18)
[2020-08-12] MEDS: ACETAMINOPHEN 325 MG/10.15 ML UDCUP PO PRN (21:18)
[2020-08-12] MEDS: ATORVASTATIN 40 MG TABLET PO SCH (21:18)
[2020-08-13] MEDS: ALBUTEROL/IPRATROPIUM 3 ML NEB RESP TX SCH ×4 (01:12→19:38)
[2020-08-13] MEDS: METOCLOPRAMIDE 10 MG/2 ML VIAL IV SCH ×4 (02:19→21:34)
[2020-08-13 05:06] LABS: Basophils # 0.1 10*3/uL (0.0-0.2); Basophils % 0.9 % (0.0-0.8); Eosinophils # 0.3 10*3/uL (0.0-0.87); Eosinophils % 3.1 % (0.00-10.9); Hematocrit 26.4 VOL% (42.0-52.0); Hemoglobin 7.9 GM/DL (14.0-18.0); Immature Granulocytes % 0.7 %; Immature Granulocytes Absolute 0.06 #; Lymphocytes # 1.4 10*3/uL (1.4-4.0); Mean Corpuscular HGB Conc 29.9 GM/DL (32-36); Mean Platelet Volume 10.4 FL (9.6-12.0); Monocytes % 8.8 % (1.7-12.7); Neutrophils % 70.5 % (38.7-73.9); Platelet Count 674 T/CUMM (130-400); Red Blood Count 2.75 MC/CUMM (3.8-5.5); Red Cell Distribution Width 16.3 % (9.3-17.3)
[2020-08-13] MEDS: INSULIN LISPRO 100 UNIT/ML SUBCUT SCH ×4 (05:10→23:52)
[2020-08-13 05:22] LABS: Calcium 8.5 MG/DL (8.5-10.1); Osmolality,Calculated 276.8 MOS/KG (273-304)
[2020-08-13] MEDS: FUROSEMIDE 20 MG TABLET PO SCH ×2 (10:01→16:17)
[2020-08-13] MEDS: METOPROLOL TARTRATE 25 MG TABLET PO SCH (10:01)
[2020-08-13] MEDS: METOPROLOL TARTRATE 50 MG TABLET PO SCH (21:34)
[2020-08-13] MEDS: ATORVASTATIN 40 MG TABLET PO SCH (21:34)
[2020-08-13] MEDS: ESCITALOPRAM 10 MG TABLET PER TUBE SCH (21:34)
[2020-08-14] MEDS: ALBUTEROL/IPRATROPIUM 3 ML NEB RESP TX SCH ×4 (00:32→19:30)
[2020-08-14] MEDS: METOCLOPRAMIDE 10 MG/2 ML VIAL IV SCH ×4 (03:52→20:55)
[2020-08-14] MEDS: INSULIN LISPRO 100 UNIT/ML SUBCUT SCH ×4 (05:30→23:54)
[2020-08-14 05:45] LABS: Basophils # 0.1 10*3/uL (0.0-0.2); Eosinophils # 0.3 10*3/uL (0.0-0.87); Eosinophils % 4.8 % (0.00-10.9); Hematocrit 24.8 VOL% (42.0-52.0); Hemoglobin 7.5 GM/DL (14.0-18.0); Immature Granulocytes % 0.4 %; Immature Granulocytes Absolute 0.03 #; Lymphocytes # 1.3 10*3/uL (1.4-4.0); Lymphocytes % 18.1 % (21.2-54.2); Mean Corpuscular HGB Conc 30.2 GM/DL (32-36); Mean Corpuscular Volume 93.2 FL (87-102); Mean Platelet Volume 10.1 FL (9.6-12.0); Monocytes % 9.4 % (1.7-12.7); Neutrophils % 66.3 % (38.7-73.9); Platelet Count 607 T/CUMM (130-400); Red Blood Count 2.66 MC/CUMM (3.8-5.5); Red Cell Distribution Width 16.4 % (9.3-17.3); White Blood Count 7.1 T/CUMM (4-12)
[2020-08-14 06:13] LABS: Calcium 8.4 MG/DL (8.5-10.1); Potassium 3.7 MMOL/L (3.5-5.1)
[2020-08-14] MEDS: METOPROLOL TARTRATE 50 MG TABLET PO SCH ×2 (09:02→20:55)
[2020-08-14] MEDS: FUROSEMIDE 20 MG TABLET PO SCH ×2 (09:02→16:14)
[2020-08-14] MEDS: ESCITALOPRAM 10 MG TABLET PER TUBE SCH (20:54)
[2020-08-14] MEDS: ATORVASTATIN 40 MG TABLET PO SCH (20:54)
[2020-08-15] MEDS: ALBUTEROL/IPRATROPIUM 3 ML NEB RESP TX SCH ×4 (00:48→19:43)
[2020-08-15] MEDS: METOCLOPRAMIDE 10 MG/2 ML VIAL IV SCH ×4 (03:11→21:45)
[2020-08-15] MEDS: ONDANSETRON 4 MG/2 ML VIAL IV PRN (05:00)
[2020-08-15 05:19] LABS: Basophils # 0.1 10*3/uL (0.0-0.2); Basophils % 0.7 % (0.0-0.8); Eosinophils # 0.1 10*3/uL (0.0-0.87); Eosinophils % 0.9 % (0.00-10.9); Hematocrit 29.6 VOL% (42.0-52.0); Hemoglobin 9.2 GM/DL (14.0-18.0); Immature Granulocytes % 0.5 %; Immature Granulocytes Absolute 0.07 #; Lymphocytes # 1.2 10*3/uL (1.4-4.0); Lymphocytes % 8.7 % (21.2-54.2); Mean Corpuscular HGB Conc 31.1 GM/DL (32-36); Mean Platelet Volume 10.6 FL (9.6-12.0); Monocytes % 6.6 % (1.7-12.7); Neutrophils % 82.6 % (38.7-73.9); Platelet Count 723 T/CUMM (130-400); Red Blood Count 3.15 MC/CUMM (3.8-5.5); Red Cell Distribution Width 16.2 % (9.3-17.3); White Blood Count 13.4 T/CUMM (4-12)
[2020-08-15 05:40] LABS: Albumin 2.2 G/DL (3.4-5.0); Bilirubin,Total 0.6 MG/DL (0.2-1.0); Calcium 8.9 MG/DL (8.5-10.1); Osmolality,Calculated 272.4 MOS/KG (273-304); Potassium 3.8 MMOL/L (3.5-5.1); Total Protein 6.5 G/DL (6.4-8.2)
[2020-08-15] MEDS: INSULIN LISPRO 100 UNIT/ML SUBCUT SCH ×3 (05:55→17:25)
[2020-08-15] MEDS: METOPROLOL TARTRATE 50 MG TABLET PO SCH ×2 (08:52→21:48)
[2020-08-15] MEDS: FUROSEMIDE 20 MG TABLET PO SCH ×2 (08:52→15:36)
[2020-08-15] MEDS: ESCITALOPRAM 10 MG TABLET PER TUBE SCH (21:48)
[2020-08-15] MEDS: ATORVASTATIN 40 MG TABLET PO SCH (21:48)
[2020-08-16] MEDS: ALBUTEROL/IPRATROPIUM 3 ML NEB RESP TX SCH ×4 (00:24→19:56)
[2020-08-16] MEDS: INSULIN LISPRO 100 UNIT/ML SUBCUT SCH ×4 (00:56→17:29)
[2020-08-16] MEDS: METOCLOPRAMIDE 10 MG/2 ML VIAL IV SCH ×4 (04:35→21:37)
[2020-08-16 05:02] LABS: Basophils # 0.1 10*3/uL (0.0-0.2); Basophils % 0.8 % (0.0-0.8); Eosinophils # 0.3 10*3/uL (0.0-0.87); Eosinophils % 2.7 % (0.00-10.9); Hematocrit 26.7 VOL% (42.0-52.0); Hemoglobin 8.2 GM/DL (14.0-18.0); Immature Granulocytes % 0.4 %; Immature Granulocytes Absolute 0.04 #; Lymphocytes # 1.7 10*3/uL (1.4-4.0); Mean Corpuscular HGB Conc 30.7 GM/DL (32-36); Mean Corpuscular Volume 93.7 FL (87-102); Mean Platelet Volume 10.3 FL (9.6-12.0); Monocytes % 8.7 % (1.7-12.7); Neutrophils % 70.4 % (38.7-73.9); Platelet Count 648 T/CUMM (130-400); Red Blood Count 2.85 MC/CUMM (3.8-5.5); Red Cell Distribution Width 16.4 % (9.3-17.3); White Blood Count 9.7 T/CUMM (4-12)
[2020-08-16 05:39] LABS: Calcium 8.5 MG/DL (8.5-10.1); Potassium 3.5 MMOL/L (3.5-5.1)
[2020-08-16] MEDS: METOPROLOL TARTRATE 50 MG TABLET PO SCH ×2 (09:05→21:36)
[2020-08-16] MEDS: FUROSEMIDE 20 MG TABLET PO SCH ×2 (09:05→16:20)
[2020-08-16] MEDS: ESCITALOPRAM 10 MG TABLET PER TUBE SCH (21:35)
[2020-08-16] MEDS: ATORVASTATIN 40 MG TABLET PO SCH (21:36)
[2020-08-17] MEDS: ALBUTEROL/IPRATROPIUM 3 ML NEB RESP TX SCH ×4 (00:12→19:17)
[2020-08-17] MEDS: INSULIN LISPRO 100 UNIT/ML SUBCUT SCH ×4 (01:20→17:40)
[2020-08-17] MEDS: ONDANSETRON 4 MG/2 ML VIAL IV PRN (01:22)
[2020-08-17] MEDS: METOCLOPRAMIDE 10 MG/2 ML VIAL IV SCH ×4 (02:08→22:22)
[2020-08-17] MEDS ORDERED: METOPROLOL TARTRATE 5 MG/5 ML VIAL IV ONE ×2 (04:55→04:57)
[2020-08-17] MEDS ORDERED: ACETAMINOPHEN 650 MG SUPP RECTAL ONE (05:00)
[2020-08-17 05:03] LABS: Basophils # 0.1 10*3/uL (0.0-0.2); Basophils % 0.4 % (0.0-0.8); Hematocrit 32.6 VOL% (42.0-52.0); Hemoglobin 9.8 GM/DL (14.0-18.0); Immature Granulocytes % 0.5 %; Immature Granulocytes Absolute 0.11 #; Lymphocytes # 1.5 10*3/uL (1.4-4.0); Lymphocytes % 7.4 % (21.2-54.2); Mean Corpuscular HGB Conc 30.1 GM/DL (32-36); Mean Corpuscular Volume 95.6 FL (87-102); Mean Platelet Volume 10.7 FL (9.6-12.0); Neutrophils % 86.7 % (38.7-73.9); Platelet Count 891 T/CUMM (130-400); Red Blood Count 3.41 MC/CUMM (3.8-5.5); Red Cell Distribution Width 16.4 % (9.3-17.3); White Blood Count 20.8 T/CUMM (4-12)
[2020-08-17] MEDS ORDERED: KETOROLAC 30 MG/1 ML VIAL ONE (05:04)
[2020-08-17] MEDS ORDERED: KETOROLAC 30 MG/1 ML VIAL IV ONE (05:06)
[2020-08-17 05:31] LABS: Band Neutrophils 5 % (0-10); Hypochromasia 1+; Lymphocytes 9 % (20-55); Segmented Neutrophils 83 % (50-85); Total Cells Counted 100
[2020-08-17 05:32] LABS: Microcytosis 1+; Ovalocytes Slight; Platelet Estimate Increased
[2020-08-17 05:43] LABS: Allen Test Positive; Pt O2 Delivery Device Venturi Mask
[2020-08-17 05:44] LABS: ABG Base Excess 5.3 MMOL/L (-2.5-2.5); ABG HCO3 29.1 MMOL/L (20-26); ABG Oxygen Saturation 90.9 % (95-100); ABG PCO2 29.8 MM HG (35-48); ABG PH 7.568 (7.35-7.45); ABG PO2 56.5 MM HG (80-95); ABG TCO2 24.7 MMOL/L (23-27)
[2020-08-17] MEDS: PIPERACILLIN/TAZOBACTAM 3,375 MG in SODIUM CHLORIDE 0.9% 100 ML IV SCH ×3 (05:44→22:19)
[2020-08-17 05:50] LABS: Calcium 9.1 MG/DL (8.5-10.1)
[2020-08-17] MEDS: FUROSEMIDE 20 MG TABLET PO SCH ×2 (09:26→16:26)
[2020-08-17] MEDS: METOPROLOL TARTRATE 50 MG TABLET PO SCH ×2 (09:26→22:20)
[2020-08-17] MEDS ORDERED: SODIUM CHLORIDE 0.9% 500 ML IV ONE ×2 (13:28→13:30)
[2020-08-17] MEDS: SODIUM CHLORIDE 0.9% 1,000 ML IV SCH ×2 (14:24→21:10)
[2020-08-17] MEDS: ATORVASTATIN 40 MG TABLET PO SCH (22:20)
[2020-08-17] MEDS: ESCITALOPRAM 10 MG TABLET PER TUBE SCH (22:20)
[2020-08-18] MEDS: ALBUTEROL/IPRATROPIUM 3 ML NEB RESP TX SCH ×4 (01:36→19:39)
[2020-08-18] MEDS: INSULIN LISPRO 100 UNIT/ML SUBCUT SCH ×4 (03:47→18:04)
[2020-08-18] MEDS: METOCLOPRAMIDE 10 MG/2 ML VIAL IV SCH ×4 (04:15→21:16)
[2020-08-18 05:17] LABS: Basophils # 0.1 10*3/uL (0.0-0.2); Basophils % 0.6 % (0.0-0.8); Eosinophils # 0.2 10*3/uL (0.0-0.87); Eosinophils % 2.3 % (0.00-10.9); Hematocrit 23.7 VOL% (42.0-52.0); Immature Granulocytes % 0.5 %; Immature Granulocytes Absolute 0.05 #; Lymphocytes # 1.2 10*3/uL (1.4-4.0); Lymphocytes % 12.2 % (21.2-54.2); Mean Corpuscular HGB Conc 31.2 GM/DL (32-36); Mean Corpuscular Volume 91.9 FL (87-102); Mean Platelet Volume 10.7 FL (9.6-12.0); Monocytes % 7.6 % (1.7-12.7); Neutrophils % 76.8 % (38.7-73.9); Red Cell Distribution Width 16.5 % (9.3-17.3)
[2020-08-18 05:24] LABS: Calcium 8.3 MG/DL (8.5-10.1); Osmolality,Calculated 288.4 MOS/KG (273-304)
[2020-08-18 05:27] LABS: Potassium 2.5 MMOL/L (3.5-5.1)
[2020-08-18 05:58] LABS: Hemoglobin 7.4 GM/DL (14.0-18.0); Platelet Count 535 T/CUMM (130-400); Red Blood Count 2.58 MC/CUMM (3.8-5.5)
[2020-08-18] MEDS: PIPERACILLIN/TAZOBACTAM 3,375 MG in SODIUM CHLORIDE 0.9% 100 ML IV SCH ×3 (06:02→21:16)
[2020-08-18] MEDS: POTASSIUM CHLORIDE 20 MEQ/15 ML UDCUP PER TUBE PRN ×4 (06:42→16:06)
[2020-08-18 06:58] LABS: Band Neutrophils 2 % (0-10); Lymphocytes 12 % (20-55); Platelet Estimate Increased; Segmented Neutrophils 82 % (50-85); Total Cells Counted 100
[2020-08-18 06:59] LABS: Hypochromasia 1+
[2020-08-18] MEDS: METOPROLOL TARTRATE 50 MG TABLET PO SCH (08:15)
[2020-08-18] MEDS: FUROSEMIDE 20 MG TABLET PO SCH ×2 (08:33→16:06)
[2020-08-18] MEDS: ESCITALOPRAM 10 MG TABLET PER TUBE SCH (21:16)
[2020-08-18] MEDS: ATORVASTATIN 40 MG TABLET PO SCH (21:16)
[2020-08-19] MEDS: ALBUTEROL/IPRATROPIUM 3 ML NEB RESP TX SCH ×4 (01:15→19:37)
[2020-08-19] MEDS: METOCLOPRAMIDE 10 MG/2 ML VIAL IV SCH ×4 (04:11→21:26)
[2020-08-19] MEDS: PIPERACILLIN/TAZOBACTAM 3,375 MG in SODIUM CHLORIDE 0.9% 100 ML IV SCH ×4 (04:12→21:26)
[2020-08-19] MEDS: INSULIN LISPRO 100 UNIT/ML SUBCUT SCH ×4 (04:13→17:52)
[2020-08-19 05:50] LABS: Basophils # 0.1 10*3/uL (0.0-0.2); Basophils % 0.8 % (0.0-0.8); Eosinophils # 0.3 10*3/uL (0.0-0.87); Eosinophils % 4.3 % (0.00-10.9); Hematocrit 24.1 VOL% (42.0-52.0); Hemoglobin 7.3 GM/DL (14.0-18.0); Immature Granulocytes % 0.4 %; Immature Granulocytes Absolute 0.03 #; Lymphocytes # 1.4 10*3/uL (1.4-4.0); Lymphocytes % 19.2 % (21.2-54.2); Mean Corpuscular HGB Conc 30.3 GM/DL (32-36); Mean Corpuscular Volume 93.8 FL (87-102); Mean Platelet Volume 10.8 FL (9.6-12.0); Monocytes % 8.7 % (1.7-12.7); Neutrophils % 66.6 % (38.7-73.9); Platelet Count 659 T/CUMM (130-400); Red Blood Count 2.57 MC/CUMM (3.8-5.5); Red Cell Distribution Width 16.6 % (9.3-17.3); White Blood Count 7.4 T/CUMM (4-12)
[2020-08-19 06:10] LABS: Calcium 8.4 MG/DL (8.5-10.1); Osmolality,Calculated 288.1 MOS/KG (273-304); Potassium 3.1 MMOL/L (3.5-5.1)
[2020-08-19] MEDS: POTASSIUM CHLORIDE 20 MEQ/15 ML UDCUP PER TUBE PRN ×4 (06:45→17:58)
[2020-08-19] MEDS: FUROSEMIDE 20 MG TABLET PO SCH ×2 (08:12→15:42)
[2020-08-19] MEDS ORDERED: SODIUM CHLORIDE 0.9% 1,000 ML IV PRN (08:50)
[2020-08-19] MEDS: POTASSIUM BICARB EFFERVESCENT 25 MEQ TABLET PO SCH ×2 (10:03→21:27)
[2020-08-19 14:33] LABS: Hematocrit 29.7 VOL% (42.0-52.0)
[2020-08-19 14:40] LABS: Hemoglobin 8.9 GM/DL (14.0-18.0)
[2020-08-19] MEDS: ATORVASTATIN 40 MG TABLET PO SCH (21:26)
[2020-08-19] MEDS: ESCITALOPRAM 10 MG TABLET PER TUBE SCH (21:26)
[2020-08-20] MEDS: ALBUTEROL/IPRATROPIUM 3 ML NEB RESP TX SCH ×4 (00:18→19:34)
[2020-08-20] MEDS: INSULIN LISPRO 100 UNIT/ML SUBCUT SCH ×4 (00:31→17:28)
[2020-08-20] MEDS: METOCLOPRAMIDE 10 MG/2 ML VIAL IV SCH ×4 (03:13→20:50)
[2020-08-20 05:31] LABS: Basophils # 0.1 10*3/uL (0.0-0.2); Basophils % 1.2 % (0.0-0.8); Eosinophils # 0.5 10*3/uL (0.0-0.87); Eosinophils % 4.4 % (0.00-10.9); Hematocrit 34.6 VOL% (42.0-52.0); Immature Granulocytes % 2.3 %; Immature Granulocytes Absolute 0.23 #; Lymphocytes # 2.1 10*3/uL (1.4-4.0); Lymphocytes % 20.8 % (21.2-54.2); Mean Corpuscular HGB Conc 29.5 GM/DL (32-36); Mean Corpuscular Volume 94.5 FL (87-102); Mean Platelet Volume 10.3 FL (9.6-12.0); Monocytes % 8.2 % (1.7-12.7); NRBC # 0.02 10*3/uL; Neutrophils % 63.1 % (38.7-73.9); Red Cell Distribution Width 18.2 % (9.3-17.3)
[2020-08-20] MEDS: PIPERACILLIN/TAZOBACTAM 3,375 MG in SODIUM CHLORIDE 0.9% 100 ML IV SCH ×3 (05:42→21:39)
[2020-08-20 05:45] LABS: Hemoglobin 10.2 GM/DL (14.0-18.0); Platelet Count 819 T/CUMM (130-400); Red Blood Count 3.66 MC/CUMM (3.8-5.5); White Blood Count 10.2 T/CUMM (4-12)
[2020-08-20 05:46] LABS: Calcium 9.2 MG/DL (8.5-10.1); Osmolality,Calculated 292.7 MOS/KG (273-304); Potassium 4.2 MMOL/L (3.5-5.1)
[2020-08-20] MEDS: POTASSIUM BICARB EFFERVESCENT 25 MEQ TABLET PO SCH ×2 (08:34→21:38)
[2020-08-20] MEDS: FUROSEMIDE 20 MG TABLET PO SCH ×2 (08:35→15:27)
[2020-08-20] MEDS: ESCITALOPRAM 10 MG TABLET PER TUBE SCH (21:38)
[2020-08-20] MEDS: METOPROLOL TARTRATE 25 MG TABLET PO SCH (21:38)
[2020-08-20] MEDS: ATORVASTATIN 40 MG TABLET PO SCH (21:38)
[2020-08-21] MEDS: ALBUTEROL/IPRATROPIUM 3 ML NEB RESP TX SCH ×4 (00:13→19:58)
[2020-08-21] MEDS: INSULIN LISPRO 100 UNIT/ML SUBCUT SCH ×4 (00:45→17:00)
[2020-08-21] MEDS: METOCLOPRAMIDE 10 MG/2 ML VIAL IV SCH ×4 (03:39→22:00)
[2020-08-21] MEDS: PIPERACILLIN/TAZOBACTAM 3,375 MG in SODIUM CHLORIDE 0.9% 100 ML IV SCH ×3 (05:09→22:01)
[2020-08-21 06:02] LABS: Basophils # 0.1 10*3/uL (0.0-0.2); Eosinophils # 0.4 10*3/uL (0.0-0.87); Eosinophils % 4.2 % (0.00-10.9); Hematocrit 33.2 VOL% (42.0-52.0); Immature Granulocytes % 2.9 %; Immature Granulocytes Absolute 0.26 #; Lymphocytes # 1.8 10*3/uL (1.4-4.0); Lymphocytes % 19.8 % (21.2-54.2); Mean Corpuscular HGB Conc 30.1 GM/DL (32-36); Mean Corpuscular Volume 95.1 FL (87-102); Mean Platelet Volume 10.1 FL (9.6-12.0); Neutrophils % 62.1 % (38.7-73.9); Platelet Count 757 T/CUMM (130-400); Red Blood Count 3.49 MC/CUMM (3.8-5.5); Red Cell Distribution Width 17.8 % (9.3-17.3); White Blood Count 9.1 T/CUMM (4-12)
[2020-08-21 06:22] LABS: Calcium 9.2 MG/DL (8.5-10.1); Osmolality,Calculated 288.8 MOS/KG (273-304); Potassium 3.7 MMOL/L (3.5-5.1)
[2020-08-21 06:40] LABS: Eosinophils 4 % (0-10); Hypochromasia Slight; Lymphocytes 24 % (20-55); Platelet Estimate Increased; Segmented Neutrophils 64 % (50-85); Total Cells Counted 100
[2020-08-21] MEDS: FUROSEMIDE 20 MG TABLET PO SCH ×2 (07:56→15:50)
[2020-08-21] MEDS: POTASSIUM BICARB EFFERVESCENT 25 MEQ TABLET PO SCH ×3 (08:12→22:04)
[2020-08-21] MEDS: METOPROLOL TARTRATE 25 MG TABLET PO SCH ×3 (08:12→21:59)
[2020-08-21] MEDS: ESCITALOPRAM 10 MG TABLET PER TUBE SCH (21:59)
[2020-08-21] MEDS: ATORVASTATIN 40 MG TABLET PO SCH (21:59)
[2020-08-22] MEDS: INSULIN LISPRO 100 UNIT/ML SUBCUT SCH ×4 (02:03→17:06)
[2020-08-22] MEDS: METOCLOPRAMIDE 10 MG/2 ML VIAL IV SCH ×4 (02:16→20:22)
[2020-08-22] MEDS: ALBUTEROL/IPRATROPIUM 3 ML NEB RESP TX SCH ×4 (02:47→19:39)
[2020-08-22 05:22] LABS: Basophils # 0.1 10*3/uL (0.0-0.2); Basophils % 0.9 % (0.0-0.8); Eosinophils # 0.2 10*3/uL (0.0-0.87); Eosinophils % 1.9 % (0.00-10.9); Hematocrit 33.6 VOL% (42.0-52.0); Immature Granulocytes % 3.2 %; Immature Granulocytes Absolute 0.25 #; Lymphocytes # 1.3 10*3/uL (1.4-4.0); Mean Corpuscular HGB Conc 29.8 GM/DL (32-36); Mean Corpuscular Volume 95.2 FL (87-102); Mean Platelet Volume 9.9 FL (9.6-12.0); Monocytes % 9.1 % (1.7-12.7); Neutrophils % 67.9 % (38.7-73.9); Platelet Count 812 T/CUMM (130-400); Red Blood Count 3.53 MC/CUMM (3.8-5.5); Red Cell Distribution Width 17.3 % (9.3-17.3); White Blood Count 7.8 T/CUMM (4-12)
[2020-08-22 06:08] LABS: Osmolality,Calculated 295.4 MOS/KG (273-304); Potassium 3.4 MMOL/L (3.5-5.1)
[2020-08-22] MEDS: PIPERACILLIN/TAZOBACTAM 3,375 MG in SODIUM CHLORIDE 0.9% 100 ML IV SCH ×3 (06:11→20:28)
[2020-08-22] MEDS: FUROSEMIDE 20 MG TABLET PO SCH (08:26)
[2020-08-22] MEDS: METOPROLOL TARTRATE 25 MG TABLET PO SCH ×2 (08:27→20:28)
[2020-08-22] MEDS: POTASSIUM BICARB EFFERVESCENT 25 MEQ TABLET PO SCH ×2 (08:31→20:23)
[2020-08-22] MEDS: LACTATED RINGERS 1,000 ML IV SCH (08:32)
[2020-08-22] MEDS: ATORVASTATIN 40 MG TABLET PO SCH (20:28)
[2020-08-22] MEDS: ESCITALOPRAM 10 MG TABLET PER TUBE SCH (20:28)
[2020-08-23] MEDS: INSULIN LISPRO 100 UNIT/ML SUBCUT SCH ×5 (00:01→23:40)
[2020-08-23] MEDS: ALBUTEROL/IPRATROPIUM 3 ML NEB RESP TX SCH ×4 (01:59→19:24)
[2020-08-23] MEDS: METOCLOPRAMIDE 10 MG/2 ML VIAL IV SCH ×2 (03:49→08:29)
[2020-08-23] MEDS: PIPERACILLIN/TAZOBACTAM 3,375 MG in SODIUM CHLORIDE 0.9% 100 ML IV SCH ×3 (04:02→22:02)
[2020-08-23 05:43] LABS: Basophils # 0.1 10*3/uL (0.0-0.2); Basophils % 0.8 % (0.0-0.8); Eosinophils # 0.2 10*3/uL (0.0-0.87); Eosinophils % 3.1 % (0.00-10.9); Hematocrit 33.9 VOL% (42.0-52.0); Hemoglobin 10.5 GM/DL (14.0-18.0); Immature Granulocytes % 1.5 %; Immature Granulocytes Absolute 0.11 #; Lymphocytes # 1.3 10*3/uL (1.4-4.0); Lymphocytes % 18.3 % (21.2-54.2); Mean Corpuscular Volume 93.4 FL (87-102); Mean Platelet Volume 10.3 FL (9.6-12.0); Monocytes % 14.7 % (1.7-12.7); Neutrophils % 61.6 % (38.7-73.9); Platelet Count 767 T/CUMM (130-400); Red Blood Count 3.63 MC/CUMM (3.8-5.5); Red Cell Distribution Width 17.3 % (9.3-17.3); White Blood Count 7.3 T/CUMM (4-12)
[2020-08-23 05:47] LABS: Calcium 9.1 MG/DL (8.5-10.1); Osmolality,Calculated 299.1 MOS/KG (273-304); Potassium 3.2 MMOL/L (3.5-5.1)
[2020-08-23] MEDS: POTASSIUM CHLORIDE 20 MEQ/15 ML UDCUP PER TUBE PRN ×4 (08:28→17:56)
[2020-08-23] MEDS: METOPROLOL TARTRATE 25 MG TABLET PO SCH ×2 (08:29→22:03)
[2020-08-23] MEDS: LACTATED RINGERS 1,000 ML IV SCH (08:29)
[2020-08-23] MEDS: POTASSIUM BICARB EFFERVESCENT 25 MEQ TABLET PO SCH ×2 (08:29→22:03)
[2020-08-23] MEDS: DEXTROSE 5% KCL 20 MEQ 20 MEQ/1,000 ML BAG IV SCH (12:05)
[2020-08-23] MEDS: METOCLOPRAMIDE 10 MG/10 ML UDCUP PEG SCH ×2 (15:18→22:03)
[2020-08-23] MEDS: ATORVASTATIN 40 MG TABLET PO SCH (22:03)
[2020-08-23] MEDS: ESCITALOPRAM 10 MG TABLET PER TUBE SCH (22:03)
[2020-08-24] MEDS: ALBUTEROL/IPRATROPIUM 3 ML NEB RESP TX SCH ×4 (04:01→19:22)
[2020-08-24] MEDS: METOCLOPRAMIDE 10 MG/10 ML UDCUP PEG SCH ×4 (04:10→20:47)
[2020-08-24] MEDS: PIPERACILLIN/TAZOBACTAM 3,375 MG in SODIUM CHLORIDE 0.9% 100 ML IV SCH ×2 (04:10→13:17)
[2020-08-24] MEDS: INSULIN LISPRO 100 UNIT/ML SUBCUT SCH ×3 (05:19→18:01)
[2020-08-24 06:28] LABS: Basophils # 0.1 10*3/uL (0.0-0.2); Basophils % 0.7 % (0.0-0.8); Eosinophils # 0.3 10*3/uL (0.0-0.87); Hematocrit 34.2 VOL% (42.0-52.0); Hemoglobin 10.1 GM/DL (14.0-18.0); Immature Granulocytes % 1.1 %; Immature Granulocytes Absolute 0.08 #; Lymphocytes # 1.4 10*3/uL (1.4-4.0); Lymphocytes % 19.3 % (21.2-54.2); Mean Corpuscular HGB Conc 29.5 GM/DL (32-36); Mean Corpuscular Volume 95.5 FL (87-102); Mean Platelet Volume 9.6 FL (9.6-12.0); Monocytes % 10.7 % (1.7-12.7); Neutrophils % 64.2 % (38.7-73.9); Platelet Count 767 T/CUMM (130-400); Red Blood Count 3.58 MC/CUMM (3.8-5.5); Red Cell Distribution Width 17.5 % (9.3-17.3); White Blood Count 7.5 T/CUMM (4-12)
[2020-08-24 06:43] LABS: Calcium 8.8 MG/DL (8.5-10.1); Osmolality,Calculated 299.1 MOS/KG (273-304); Potassium 3.5 MMOL/L (3.5-5.1)
[2020-08-24] MEDS: METOPROLOL TARTRATE 25 MG TABLET PO SCH ×2 (09:16→20:47)
[2020-08-24] MEDS: DEXTROSE 5% KCL 20 MEQ 20 MEQ/1,000 ML BAG IV SCH (09:16)
[2020-08-24] MEDS: POTASSIUM BICARB EFFERVESCENT 25 MEQ TABLET PO SCH ×2 (09:17→20:47)
[2020-08-24] MEDS: ATORVASTATIN 40 MG TABLET PO SCH (20:47)
[2020-08-24] MEDS: ESCITALOPRAM 10 MG TABLET PER TUBE SCH (20:47)
[2020-08-25] MEDS: ALBUTEROL/IPRATROPIUM 3 ML NEB RESP TX SCH ×4 (00:16→19:14)
[2020-08-25] MEDS: INSULIN LISPRO 100 UNIT/ML SUBCUT SCH ×5 (00:28→23:29)
[2020-08-25] MEDS: METOCLOPRAMIDE 10 MG/10 ML UDCUP PEG SCH ×4 (03:22→21:21)
[2020-08-25] MEDS: DEXTROSE 5% KCL 20 MEQ 20 MEQ/1,000 ML BAG IV SCH (03:23)
[2020-08-25 06:36] LABS: Calcium 8.8 MG/DL (8.5-10.1); Potassium 3.2 MMOL/L (3.5-5.1)
[2020-08-25 06:44] LABS: Basophils # 0.1 10*3/uL (0.0-0.2); Basophils % 0.9 % (0.0-0.8); Eosinophils # 0.3 10*3/uL (0.0-0.87); Eosinophils % 4.4 % (0.00-10.9); Hematocrit 33.4 VOL% (42.0-52.0); Hemoglobin 9.8 GM/DL (14.0-18.0); Immature Granulocytes % 1.4 %; Immature Granulocytes Absolute 0.09 #; Lymphocytes # 1.4 10*3/uL (1.4-4.0); Lymphocytes % 21.6 % (21.2-54.2); Mean Corpuscular HGB Conc 29.3 GM/DL (32-36); Mean Corpuscular Volume 96.8 FL (87-102); Mean Platelet Volume 10.4 FL (9.6-12.0); Monocytes % 10.4 % (1.7-12.7); Neutrophils % 61.3 % (38.7-73.9); Platelet Count 678 T/CUMM (130-400); Red Blood Count 3.45 MC/CUMM (3.8-5.5); Red Cell Distribution Width 17.4 % (9.3-17.3); White Blood Count 6.6 T/CUMM (4-12)
[2020-08-25] MEDS: POTASSIUM CHLORIDE 20 MEQ/15 ML UDCUP PER TUBE PRN ×2 (09:01→14:22)
[2020-08-25] MEDS: POTASSIUM BICARB EFFERVESCENT 25 MEQ TABLET PO SCH ×2 (09:02→21:21)
[2020-08-25] MEDS: METOPROLOL TARTRATE 25 MG TABLET PO SCH ×2 (09:02→21:21)
[2020-08-25] MEDS: POTASSIUM CHLORIDE INJ 30 MEQ in DEXTROSE 5% LACTATED RINGERS 1,000 ML IV SCH ×2 (13:42→23:49)
[2020-08-25] MEDS: ESCITALOPRAM 10 MG TABLET PER TUBE SCH (21:21)
[2020-08-25] MEDS: ATORVASTATIN 40 MG TABLET PO SCH (21:21)
[2020-08-26] MEDS: ALBUTEROL/IPRATROPIUM 3 ML NEB RESP TX SCH ×4 (00:24→19:21)
[2020-08-26] MEDS: METOCLOPRAMIDE 10 MG/10 ML UDCUP PEG SCH (03:14)
[2020-08-26] MEDS: ONDANSETRON 4 MG/2 ML VIAL IV PRN ×2 (05:20→11:16)
[2020-08-26 05:51] LABS: Basophils # 0.1 10*3/uL (0.0-0.2); Basophils % 0.8 % (0.0-0.8); Eosinophils # 0.1 10*3/uL (0.0-0.87); Eosinophils % 1.3 % (0.00-10.9); Hematocrit 37.4 VOL% (42.0-52.0); Hemoglobin 11.2 GM/DL (14.0-18.0); Immature Granulocytes % 1.1 %; Immature Granulocytes Absolute 0.09 #; Lymphocytes # 1.5 10*3/uL (1.4-4.0); Lymphocytes % 17.4 % (21.2-54.2); Mean Corpuscular HGB Conc 29.9 GM/DL (32-36); Mean Corpuscular Volume 95.2 FL (87-102); Mean Platelet Volume 10.7 FL (9.6-12.0); Monocytes % 7.7 % (1.7-12.7); Neutrophils % 71.7 % (38.7-73.9); Platelet Count 697 T/CUMM (130-400); Red Blood Count 3.93 MC/CUMM (3.8-5.5); Red Cell Distribution Width 17.9 % (9.3-17.3); White Blood Count 8.5 T/CUMM (4-12)
[2020-08-26] MEDS: INSULIN LISPRO 100 UNIT/ML SUBCUT SCH ×3 (06:00→17:53)
[2020-08-26 06:02] LABS: Calcium 8.9 MG/DL (8.5-10.1); Osmolality,Calculated 302.9 MOS/KG (273-304); Potassium 3.6 MMOL/L (3.5-5.1)
[2020-08-26] MEDS ORDERED: METOCLOPRAMIDE 10 MG/2 ML VIAL IV SCH (09:00)
[2020-08-26] MEDS: METOPROLOL TARTRATE 25 MG TABLET PO SCH (09:54)
[2020-08-26] MEDS: POTASSIUM BICARB EFFERVESCENT 25 MEQ TABLET PO SCH (09:54)
[2020-08-26] MEDS: POTASSIUM CHLORIDE INJ 30 MEQ in DEXTROSE 5% LACTATED RINGERS 1,000 ML IV SCH ×2 (11:15→22:18)
[2020-08-26] MEDS ORDERED: SODIUM CHLORIDE 0.9% 1,000 ML IV ONE (13:40)
[2020-08-26] MEDS: ACETAMINOPHEN 650 MG SUPP RECTAL PRN (14:54)
[2020-08-27] MEDS: ALBUTEROL/IPRATROPIUM 3 ML NEB RESP TX SCH ×3 (00:20→13:27)
[2020-08-27] MEDS: INSULIN LISPRO 100 UNIT/ML SUBCUT SCH ×3 (00:37→15:10)
[2020-08-27] MEDS: POTASSIUM CHLORIDE INJ 30 MEQ in DEXTROSE 5% LACTATED RINGERS 1,000 ML IV SCH ×2 (01:22→11:12)
[2020-08-27] MEDS: MORPHINE 4 MG/1 ML VIAL IV PRN ×3 (17:11→19:43)
[2020-08-27] MEDS: LORazepam 2 MG/1 ML VIAL IV PRN (18:07)
[2020-08-27] MEDS: ACETAMINOPHEN 650 MG SUPP RECTAL PRN (19:45)
[2020-08-28] MEDS: MORPHINE 4 MG/1 ML VIAL IV PRN (18:43)
[2020-08-29] MEDS: MORPHINE 4 MG/1 ML VIAL IV PRN ×2 (08:34→11:30)
[2020-08-29] MEDS: LORazepam 2 MG/1 ML VIAL IV PRN (13:23)
[2020-08-29] MEDS: ACETAMINOPHEN 650 MG SUPP RECTAL PRN (20:46)
[2020-08-30] MEDS: MORPHINE 4 MG/1 ML VIAL IV PRN ×3 (08:26→20:39)
[2020-08-31] MEDS: LORazepam 2 MG/1 ML VIAL IV PRN ×2 (00:06→07:35)
[2020-08-31] MEDS: MORPHINE 4 MG/1 ML VIAL IV PRN ×2 (04:42→07:35)
[2020-09-01] MEDS: MORPHINE 4 MG/1 ML VIAL IV PRN ×3 (01:30→07:03)
[2020-09-01] MEDS: LORazepam 2 MG/1 ML VIAL IV PRN (05:45)
[2020-09-01 07:57] VITALS: BP 112/44
== END 2020-09-01 11:55 | disposition expired | DRG 134 ==
LOC: N.ED 20:34 → N.ICU 07-04 11:25 → SUATTDRO 07-04 11:25 → N.ICU 07-04 12:13 → N.5E 07-05 14:09
PROVIDERS: ADMIT Internal Medicine; ATTEND Hospitalist
PROC: EGDWPEG (ICD-10-PCS; 2020-07-13 12:35)